=== PATIENT | female | born 1945 | race Caucasian/White ===

== ENCOUNTER 2019-08-28 01:04 | Outpatient (CLI) | payer MEDICARE, OTHER, SELFPAY ==
[2019-08-28 08:38] LABS: Anion Gap 7.9 mmol/L (3-11); BUN 23 mg/dL (7-18); CO2 33.1 mmol/L (21.0-32.0); CREATININE 0.96 mg/dL (0.55-1.02); Calcium 8.6 mg/dL (8.5-10.1); Calculated LDL 145 mg/dL (<100); Chloride 103 mmol/L (98-107); Cholesterol 229 mg/dL (<200); Estimated GFR 57.13 (mL/min/1.73m2); Glucose 100 mg/dL (74-106); HDL Cholesterol 61 mg/dL (40-60); Potassium 3.5 mmol/L (3.5-5.1); Sodium 144 mmol/L (136-145); Triglyceride 117 mg/dL (<150)
[2019-08-28] MEDS: Omnipaque 350 MG/ML 50 ML BTL PO (08:42)
--- NOTE | 2019-08-28 09:57 | DI.CT_ITS ---
EXAM: CT ABDOMEN PELVIS W CLINICAL HISTORY: RLQ pain,R10.31 TECHNIQUE: Post IV and oral contrast. COMPARISON: No exams were available for comparison FINDINGS: There is a small hiatal hernia. Lung bases are clear. The liver, gallbladder, spleen, pancreas and adrenals well as kidneys are unremarkable. The aorta shows calcification and is normal in diameter. The uterus, ovaries and bladder are unremarkable. There is a moderate quantity of stool. There is diverticulosis in the sigmoid but no evidence of diverticulitis. Appendix appears normal. There is no small bowel dilatation or wall thickening. Severe degenerative disc changes are seen from L2-3 t hrough L5-S1. IMPRESSION: No acute abnormality. Small hiatal hernia and sigmoid diverticulosis is present.
[2019-08-28] MEDS: Omnipaque 350 MG/ML 100 ML BTL IJ (10:05)
== END 2019-08-28 01:24 ==
PROVIDERS: PCP Emergency Medicine; Visit Provider Emergency Medicine
DX: R10.31 Right lower quadrant pain (principal); K44.9 Diaphragmatic hernia without obstruction or gangrene; K57.30 Diverticulosis of large intestine without perforation or abscess without bleeding; I10 Essential (primary) hypertension
CPT/HCPCS: 80048; 80061; 74177; 82565; J3490; Q9967

== ENCOUNTER 2019-09-06 00:41 | Outpatient (CLI) | payer MEDICARE, OTHER, SELFPAY ==
--- NOTE | 2019-09-06 10:30 | DI.MAMMO_ITS ---
EXAM: MAMMO SCREENING CLINICAL HISTORY: screening, Z12.39 TECHNIQUE: Mammograms were interpreted according to the usual protocol including computer analysis w [employer] CAD system, tomosynthesis and C-view imaging. COMPARISON: 2009 to 2015 FINDINGS: The breasts are composed of mainly fatty density , Breast Density category A. No suspicious masses or suspicious microcalcifications are seen. There are 2 small stable circumscri bed nodules in the left breast. No skin thickening or abnormal axillary lymph nodes are seen. There has been no significant change from prior exams. IMPRESSION: BI-RADS Category 2 - Negatigve Mammogram with benign findings. Yearly screening mammography is recom mended. Breast density category A.
== END 2019-09-06 01:01 ==
PROVIDERS: PCP Emergency Medicine; Visit Provider Emergency Medicine
DX: Z12.31 Encounter for screening mammogram for malignant neoplasm of breast (principal)
CPT/HCPCS: 77063; 77067

== ENCOUNTER 2019-09-21 00:45 | Outpatient (CLI) | payer MEDICARE, OTHER, SELFPAY | END 2019-09-21 01:05 | PROVIDERS: PCP Emergency Medicine; Visit Provider Dermatology | DX: L40.9 Psoriasis, unspecified (principal) | CPT/HCPCS: 96900 ==

== ENCOUNTER 2019-09-24 02:00 | Outpatient (CLI) | payer MEDICARE, OTHER, SELFPAY | END 2019-09-24 02:20 | PROVIDERS: PCP Emergency Medicine; Visit Provider Dermatology | DX: L40.9 Psoriasis, unspecified (principal) | CPT/HCPCS: 96900 ==

== ENCOUNTER 2019-09-28 01:59 | Outpatient (CLI) | payer MEDICARE, OTHER, SELFPAY | END 2019-09-28 02:19 | PROVIDERS: PCP Emergency Medicine; Visit Provider Dermatology | DX: L40.9 Psoriasis, unspecified (principal) | CPT/HCPCS: 96900 ==

== ENCOUNTER 2019-11-19 03:38 | Outpatient (CLI) | payer MEDICARE, OTHER, SELFPAY | END 2019-11-19 03:58 | PROVIDERS: PCP Emergency Medicine; Visit Provider Dermatology | DX: L40.9 Psoriasis, unspecified (principal) | CPT/HCPCS: 96900 ==

== ENCOUNTER 2019-11-21 02:33 | Outpatient (CLI) | payer MEDICARE, OTHER, SELFPAY | END 2019-11-21 02:53 | PROVIDERS: PCP Emergency Medicine; Visit Provider Dermatology | DX: L40.9 Psoriasis, unspecified (principal) | CPT/HCPCS: 96900 ==

== ENCOUNTER 2019-11-23 01:27 | Outpatient (CLI) | payer MEDICARE, OTHER, SELFPAY | END 2019-11-23 01:47 | PROVIDERS: PCP Emergency Medicine; Visit Provider Dermatology | DX: L40.9 Psoriasis, unspecified (principal) | CPT/HCPCS: 96900 ==

== ENCOUNTER 2019-11-26 02:20 | Outpatient (CLI) | payer MEDICARE, OTHER, SELFPAY | END 2019-11-26 02:40 | PROVIDERS: PCP Emergency Medicine; Visit Provider Dermatology | DX: L40.9 Psoriasis, unspecified (principal) | CPT/HCPCS: 96900 ==

== ENCOUNTER 2019-11-28 03:37 | Outpatient (CLI) | payer MEDICARE, OTHER, SELFPAY | END 2019-11-28 03:57 | PROVIDERS: PCP Emergency Medicine; Visit Provider Dermatology | DX: L40.9 Psoriasis, unspecified (principal) | CPT/HCPCS: 96900 ==

== ENCOUNTER 2019-11-30 01:19 | Outpatient (CLI) | payer MEDICARE, OTHER, SELFPAY | END 2019-11-30 01:39 | PROVIDERS: PCP Emergency Medicine; Visit Provider Dermatology | DX: L40.9 Psoriasis, unspecified (principal) | CPT/HCPCS: 96900 ==

== ENCOUNTER 2019-12-03 02:38 | Outpatient (CLI) | payer MEDICARE, OTHER, SELFPAY | END 2019-12-03 02:58 | PROVIDERS: PCP Emergency Medicine; Visit Provider Dermatology | DX: L40.9 Psoriasis, unspecified (principal) | CPT/HCPCS: 96900 ==

== ENCOUNTER 2019-12-05 01:11 | Outpatient (CLI) | payer MEDICARE, OTHER, SELFPAY | END 2019-12-05 01:31 | PROVIDERS: PCP Emergency Medicine; Visit Provider Dermatology | DX: L40.9 Psoriasis, unspecified (principal) | CPT/HCPCS: 96900 ==

== ENCOUNTER 2019-12-07 01:15 | Outpatient (CLI) | payer MEDICARE, OTHER, SELFPAY | END 2019-12-07 01:35 | PROVIDERS: PCP Emergency Medicine; Visit Provider Dermatology | DX: L40.9 Psoriasis, unspecified (principal) | CPT/HCPCS: 96900 ==

== ENCOUNTER 2019-12-12 03:49 | Outpatient (CLI) | payer MEDICARE, OTHER, SELFPAY | END 2019-12-12 04:09 | PROVIDERS: PCP Emergency Medicine; Visit Provider Dermatology | DX: L40.9 Psoriasis, unspecified (principal) | CPT/HCPCS: 96900 ==

== ENCOUNTER 2019-12-14 00:56 | Outpatient (CLI) | payer MEDICARE, OTHER, SELFPAY | END 2019-12-14 01:16 | PROVIDERS: PCP Emergency Medicine; Visit Provider Dermatology | DX: L40.9 Psoriasis, unspecified (principal) | CPT/HCPCS: 96900 ==

== ENCOUNTER 2019-12-17 03:59 | Outpatient (CLI) | payer MEDICARE, OTHER, SELFPAY | END 2019-12-17 04:19 | PROVIDERS: PCP Emergency Medicine; Visit Provider Dermatology | DX: L40.9 Psoriasis, unspecified (principal) | CPT/HCPCS: 96900 ==

== ENCOUNTER 2019-12-19 03:14 | Outpatient (CLI) | payer MEDICARE, OTHER, SELFPAY | END 2019-12-19 03:34 | PROVIDERS: PCP Emergency Medicine; Visit Provider Dermatology | DX: L40.9 Psoriasis, unspecified (principal) | CPT/HCPCS: 96900 ==

== ENCOUNTER 2019-12-21 01:20 | Outpatient (CLI) | payer MEDICARE, OTHER, SELFPAY | END 2019-12-21 01:40 | PROVIDERS: PCP Emergency Medicine; Visit Provider Dermatology | DX: L40.9 Psoriasis, unspecified (principal) | CPT/HCPCS: 96900 ==

== ENCOUNTER 2019-12-24 04:47 | Outpatient (CLI) | payer MEDICARE, OTHER, SELFPAY | END 2019-12-24 05:07 | PROVIDERS: PCP Emergency Medicine; Visit Provider Dermatology | DX: L40.9 Psoriasis, unspecified (principal) | CPT/HCPCS: 96900 ==

== ENCOUNTER 2019-12-26 01:37 | Outpatient (CLI) | payer MEDICARE, OTHER, SELFPAY | END 2019-12-26 01:57 | PROVIDERS: PCP Emergency Medicine; Visit Provider Dermatology | DX: L40.9 Psoriasis, unspecified (principal) | CPT/HCPCS: 96900 ==

== ENCOUNTER 2019-12-28 01:46 | Outpatient (CLI) | payer MEDICARE, OTHER, SELFPAY | END 2019-12-28 02:06 | PROVIDERS: PCP Emergency Medicine; Visit Provider Dermatology | DX: L40.9 Psoriasis, unspecified (principal) | CPT/HCPCS: 96900 ==

== ENCOUNTER 2019-12-31 02:21 | Outpatient (CLI) | payer MEDICARE, OTHER, SELFPAY | END 2019-12-31 02:41 | PROVIDERS: PCP Emergency Medicine; Visit Provider Dermatology | DX: L40.9 Psoriasis, unspecified (principal) | CPT/HCPCS: 96900 ==

== ENCOUNTER 2020-01-02 04:18 | Outpatient (CLI) | payer MEDICARE, OTHER, SELFPAY | END 2020-01-02 04:38 | PROVIDERS: PCP Emergency Medicine; Visit Provider Dermatology | DX: L40.9 Psoriasis, unspecified (principal) | CPT/HCPCS: 96900 ==

== ENCOUNTER 2020-01-04 03:10 | Outpatient (CLI) | payer MEDICARE, OTHER, SELFPAY | END 2020-01-04 03:30 | PROVIDERS: PCP Emergency Medicine; Visit Provider Dermatology | DX: L40.9 Psoriasis, unspecified (principal) | CPT/HCPCS: 96900 ==

== ENCOUNTER 2020-01-09 02:52 | Outpatient (CLI) | payer MEDICARE, OTHER, SELFPAY | END 2020-01-09 03:12 | PROVIDERS: PCP Emergency Medicine; Visit Provider Dermatology | DX: L40.9 Psoriasis, unspecified (principal) | CPT/HCPCS: 96900 ==

== ENCOUNTER 2020-01-11 02:17 | Outpatient (CLI) | payer MEDICARE, OTHER, SELFPAY | END 2020-01-11 02:37 | PROVIDERS: PCP Emergency Medicine; Visit Provider Dermatology | DX: L40.9 Psoriasis, unspecified (principal) | CPT/HCPCS: 96900 ==

== ENCOUNTER 2020-01-14 03:36 | Outpatient (CLI) | payer MEDICARE, OTHER, SELFPAY | END 2020-01-14 03:56 | PROVIDERS: PCP Emergency Medicine; Visit Provider Dermatology | DX: L40.9 Psoriasis, unspecified (principal) | CPT/HCPCS: 96900 ==

== ENCOUNTER 2020-01-21 02:28 | Outpatient (CLI) | payer MEDICARE, OTHER, SELFPAY | END 2020-01-21 02:48 | PROVIDERS: PCP Emergency Medicine; Visit Provider Dermatology | DX: L40.9 Psoriasis, unspecified (principal) | CPT/HCPCS: 96900 ==

== ENCOUNTER 2020-01-23 03:42 | Outpatient (CLI) | payer MEDICARE, OTHER, SELFPAY | END 2020-01-23 04:02 | PROVIDERS: PCP Emergency Medicine; Visit Provider Dermatology | DX: L40.9 Psoriasis, unspecified (principal) | CPT/HCPCS: 96900 ==

== ENCOUNTER 2020-01-25 01:55 | Outpatient (CLI) | payer MEDICARE, OTHER, SELFPAY | END 2020-01-25 02:15 | PROVIDERS: PCP Emergency Medicine; Visit Provider Dermatology | DX: L40.9 Psoriasis, unspecified (principal) | CPT/HCPCS: 96900 ==

== ENCOUNTER 2020-01-28 01:57 | Outpatient (CLI) | payer MEDICARE, OTHER, SELFPAY | END 2020-01-28 02:17 | PROVIDERS: PCP Emergency Medicine; Visit Provider Dermatology | DX: L40.9 Psoriasis, unspecified (principal) | CPT/HCPCS: 96900 ==

== ENCOUNTER 2020-01-30 01:32 | Outpatient (CLI) | payer MEDICARE, OTHER, SELFPAY | END 2020-01-30 01:52 | PROVIDERS: PCP Emergency Medicine; Visit Provider Dermatology | DX: L40.9 Psoriasis, unspecified (principal) | CPT/HCPCS: 96900 ==

== ENCOUNTER 2020-02-01 02:28 | Outpatient (CLI) | payer MEDICARE, OTHER, SELFPAY | END 2020-02-01 02:48 | PROVIDERS: PCP Emergency Medicine; Visit Provider Dermatology | DX: L40.9 Psoriasis, unspecified (principal) | CPT/HCPCS: 96900 ==

== ENCOUNTER 2020-02-04 02:52 | Outpatient (CLI) | payer MEDICARE, OTHER, SELFPAY | END 2020-02-04 03:12 | PROVIDERS: PCP Emergency Medicine; Visit Provider Dermatology | DX: L40.9 Psoriasis, unspecified (principal) | CPT/HCPCS: 96900 ==

== ENCOUNTER 2020-02-13 03:32 | Outpatient (CLI) | payer MEDICARE, OTHER, SELFPAY | END 2020-02-13 03:52 | PROVIDERS: PCP Emergency Medicine; Visit Provider Dermatology | DX: L40.9 Psoriasis, unspecified (principal) | CPT/HCPCS: 96900 ==

== ENCOUNTER 2020-02-20 04:26 | Outpatient (CLI) | payer MEDICARE, OTHER, SELFPAY | END 2020-02-20 04:46 | PROVIDERS: PCP Emergency Medicine; Visit Provider Dermatology | DX: L40.9 Psoriasis, unspecified (principal) | CPT/HCPCS: 96900 ==

== ENCOUNTER 2020-02-27 03:38 | Outpatient (CLI) | payer MEDICARE, OTHER, SELFPAY | END 2020-02-27 03:58 | PROVIDERS: PCP Emergency Medicine; Visit Provider Dermatology | DX: L40.9 Psoriasis, unspecified (principal) | CPT/HCPCS: 96900 ==

== ENCOUNTER 2020-03-05 03:06 | Outpatient (CLI) | payer MEDICARE, OTHER, SELFPAY | END 2020-03-05 03:26 | PROVIDERS: PCP Emergency Medicine; Visit Provider Dermatology | DX: L40.9 Psoriasis, unspecified (principal) | CPT/HCPCS: 96900 ==

== ENCOUNTER 2020-03-12 03:38 | Outpatient (CLI) | payer MEDICARE, OTHER, SELFPAY | END 2020-03-12 03:58 | PROVIDERS: PCP Emergency Medicine; Visit Provider Dermatology | DX: L40.9 Psoriasis, unspecified (principal) | CPT/HCPCS: 96900 ==

== ENCOUNTER 2020-03-19 05:19 | Outpatient (CLI) | payer MEDICARE, OTHER, SELFPAY | END 2020-03-19 05:39 | PROVIDERS: PCP Emergency Medicine; Visit Provider Dermatology | DX: L40.9 Psoriasis, unspecified (principal) | CPT/HCPCS: 96900 ==

== ENCOUNTER 2020-03-26 02:01 | Outpatient (CLI) | payer MEDICARE, OTHER, SELFPAY | END 2020-03-26 02:21 | PROVIDERS: PCP Emergency Medicine; Visit Provider Dermatology | DX: L40.9 Psoriasis, unspecified (principal) | CPT/HCPCS: 96900 ==

== ENCOUNTER 2020-03-31 01:59 | Outpatient (CLI) | payer MEDICARE, OTHER, SELFPAY | END 2020-03-31 02:19 | PROVIDERS: PCP Emergency Medicine; Visit Provider Dermatology | DX: L40.9 Psoriasis, unspecified (principal) | CPT/HCPCS: 96900 ==

== ENCOUNTER 2020-04-09 03:28 | Outpatient (CLI) | payer MEDICARE, OTHER, SELFPAY | END 2020-04-09 03:48 | PROVIDERS: PCP Emergency Medicine; Visit Provider Dermatology | DX: L40.9 Psoriasis, unspecified (principal) | CPT/HCPCS: 96900 ==

== ENCOUNTER 2020-04-16 03:53 | Outpatient (CLI) | payer MEDICARE, OTHER, SELFPAY | END 2020-04-16 04:13 | PROVIDERS: PCP Emergency Medicine; Visit Provider Dermatology | DX: L40.9 Psoriasis, unspecified (principal) | CPT/HCPCS: 96900 ==

== ENCOUNTER 2020-04-23 01:28 | Outpatient (CLI) | payer MEDICARE, OTHER, SELFPAY | END 2020-04-23 01:48 | PROVIDERS: PCP Emergency Medicine; Visit Provider Dermatology | DX: L40.9 Psoriasis, unspecified (principal) | CPT/HCPCS: 96900 ==

== ENCOUNTER 2020-04-30 02:32 | Outpatient (CLI) | payer MEDICARE, OTHER, SELFPAY | END 2020-04-30 02:52 | PROVIDERS: PCP Emergency Medicine; Visit Provider Dermatology | DX: L40.9 Psoriasis, unspecified (principal) | CPT/HCPCS: 96900 ==

== ENCOUNTER 2020-05-02 01:34 | Outpatient (CLI) | payer MEDICARE, OTHER, SELFPAY | END 2020-05-02 01:54 | PROVIDERS: PCP Emergency Medicine; Visit Provider Dermatology | DX: L40.9 Psoriasis, unspecified (principal) | CPT/HCPCS: 96900 ==

== ENCOUNTER 2020-05-07 01:23 | Outpatient (CLI) | payer MEDICARE, OTHER, SELFPAY | END 2020-05-07 01:43 | PROVIDERS: PCP Emergency Medicine; Visit Provider Dermatology | DX: L40.9 Psoriasis, unspecified (principal) | CPT/HCPCS: 96900 ==

== ENCOUNTER 2020-05-09 07:31 | Outpatient (CLI) | payer MEDICARE, OTHER, SELFPAY | END 2020-05-09 07:51 | PROVIDERS: PCP Emergency Medicine; Visit Provider Dermatology | DX: L40.9 Psoriasis, unspecified (principal) | CPT/HCPCS: 96900 ==

== ENCOUNTER 2020-05-14 03:16 | Outpatient (CLI) | payer MEDICARE, OTHER, SELFPAY | END 2020-05-14 03:36 | PROVIDERS: PCP Emergency Medicine; Visit Provider Dermatology | DX: L40.9 Psoriasis, unspecified (principal) | CPT/HCPCS: 96900 ==

== ENCOUNTER 2020-05-16 01:41 | Outpatient (CLI) | payer MEDICARE, OTHER, SELFPAY | END 2020-05-16 02:01 | PROVIDERS: PCP Emergency Medicine; Visit Provider Dermatology | DX: L40.9 Psoriasis, unspecified (principal) | CPT/HCPCS: 96900 ==

== ENCOUNTER 2020-05-21 02:03 | Outpatient (CLI) | payer MEDICARE, OTHER, SELFPAY | END 2020-05-21 02:23 | PROVIDERS: PCP Emergency Medicine; Visit Provider Dermatology | DX: L40.9 Psoriasis, unspecified (principal) | CPT/HCPCS: 96900 ==

== ENCOUNTER 2020-05-23 01:20 | Outpatient (CLI) | payer MEDICARE, OTHER, SELFPAY | END 2020-05-23 01:40 | PROVIDERS: PCP Emergency Medicine; Visit Provider Dermatology | DX: L40.9 Psoriasis, unspecified (principal) | CPT/HCPCS: 96900 ==

== ENCOUNTER 2020-05-28 02:20 | Outpatient (CLI) | payer MEDICARE, OTHER, SELFPAY | END 2020-05-28 02:40 | PROVIDERS: PCP Emergency Medicine; Visit Provider Dermatology | DX: L40.9 Psoriasis, unspecified (principal) | CPT/HCPCS: 96900 ==

== ENCOUNTER 2020-05-30 00:17 | Outpatient (CLI) | payer MEDICARE, OTHER, SELFPAY | END 2020-05-30 00:37 | PROVIDERS: PCP Emergency Medicine; Visit Provider Dermatology | DX: L40.9 Psoriasis, unspecified (principal) | CPT/HCPCS: 96900 ==

== ENCOUNTER 2020-06-04 00:06 | Outpatient (CLI) | payer MEDICARE, OTHER, SELFPAY | END 2020-06-04 00:26 | PROVIDERS: PCP Emergency Medicine; Visit Provider Dermatology | DX: L40.9 Psoriasis, unspecified (principal) | CPT/HCPCS: 96900 ==

== ENCOUNTER 2020-06-06 00:57 | Outpatient (CLI) | payer MEDICARE, OTHER, SELFPAY | END 2020-06-06 01:17 | PROVIDERS: PCP Emergency Medicine; Visit Provider Dermatology | DX: L40.9 Psoriasis, unspecified (principal) | CPT/HCPCS: 96900 ==

== ENCOUNTER 2020-06-18 12:14 | Outpatient (CLI) | payer MEDICARE, OTHER, SELFPAY | END 2020-06-18 12:34 | PROVIDERS: PCP Emergency Medicine; Visit Provider Dermatology | DX: L40.9 Psoriasis, unspecified (principal) | CPT/HCPCS: 96900 ==

== ENCOUNTER 2020-06-20 00:56 | Outpatient (CLI) | payer MEDICARE, OTHER, SELFPAY | END 2020-06-20 01:16 | PROVIDERS: PCP Emergency Medicine; Visit Provider Dermatology | DX: L40.9 Psoriasis, unspecified (principal) | CPT/HCPCS: 96900 ==

== ENCOUNTER 2020-06-25 07:58 | Outpatient (CLI) | payer MEDICARE, OTHER, SELFPAY | END 2020-06-25 08:18 | PROVIDERS: PCP Emergency Medicine; Visit Provider Dermatology | DX: L40.9 Psoriasis, unspecified (principal) | CPT/HCPCS: 96900 ==

== ENCOUNTER 2020-06-27 07:39 | Outpatient (CLI) | payer MEDICARE, OTHER, SELFPAY | END 2020-06-27 07:59 | PROVIDERS: PCP Emergency Medicine; Visit Provider Dermatology | DX: L40.9 Psoriasis, unspecified (principal) | CPT/HCPCS: 96900 ==

== ENCOUNTER 2020-07-02 02:16 | Outpatient (CLI) | payer MEDICARE, OTHER, SELFPAY | END 2020-07-02 02:36 | PROVIDERS: PCP Emergency Medicine; Visit Provider Dermatology | DX: L40.9 Psoriasis, unspecified (principal) | CPT/HCPCS: 96900 ==

== ENCOUNTER 2020-07-07 03:13 | Outpatient (CLI) | payer MEDICARE, OTHER, SELFPAY | END 2020-07-07 03:33 | PROVIDERS: PCP Emergency Medicine; Visit Provider Dermatology | DX: L40.9 Psoriasis, unspecified (principal) | CPT/HCPCS: 96900 ==

== ENCOUNTER 2020-07-09 03:29 | Outpatient (CLI) | payer MEDICARE, OTHER, SELFPAY | END 2020-07-09 03:49 | PROVIDERS: PCP Emergency Medicine; Visit Provider Dermatology | DX: L40.9 Psoriasis, unspecified (principal) | CPT/HCPCS: 96900 ==

== ENCOUNTER 2020-07-16 09:39 | Outpatient (CLI) | payer MEDICARE, OTHER, SELFPAY | END 2020-07-16 09:59 | PROVIDERS: PCP Emergency Medicine; Visit Provider Dermatology | DX: L40.9 Psoriasis, unspecified (principal) | CPT/HCPCS: 96900 ==

== ENCOUNTER 2020-07-23 05:24 | Outpatient (CLI) | payer MEDICARE, OTHER, SELFPAY | END 2020-07-23 05:44 | PROVIDERS: PCP Emergency Medicine; Visit Provider Dermatology | DX: L40.9 Psoriasis, unspecified (principal) | CPT/HCPCS: 96900 ==

== ENCOUNTER 2020-07-25 00:20 | Outpatient (CLI) | payer MEDICARE, OTHER, SELFPAY | END 2020-07-25 00:40 | PROVIDERS: PCP Emergency Medicine; Visit Provider Dermatology | DX: L40.9 Psoriasis, unspecified (principal) | CPT/HCPCS: 96900 ==

== ENCOUNTER 2020-07-30 08:34 | Outpatient (CLI) | payer MEDICARE, OTHER, SELFPAY | END 2020-07-30 08:54 | PROVIDERS: PCP Emergency Medicine; Visit Provider Dermatology | DX: L40.9 Psoriasis, unspecified (principal) | CPT/HCPCS: 96900 ==

== ENCOUNTER 2020-08-01 08:30 | Outpatient (CLI) | payer MEDICARE, OTHER, SELFPAY | END 2020-08-01 08:50 | PROVIDERS: PCP Emergency Medicine; Visit Provider Dermatology | DX: L40.9 Psoriasis, unspecified (principal) | CPT/HCPCS: 96900 ==

== ENCOUNTER 2020-08-06 10:17 | Outpatient (CLI) | payer MEDICARE, OTHER, SELFPAY | END 2020-08-06 10:37 | PROVIDERS: PCP Emergency Medicine; Visit Provider Dermatology | DX: L40.9 Psoriasis, unspecified (principal) | CPT/HCPCS: 96900 ==

== ENCOUNTER 2020-08-08 08:30 | Outpatient (CLI) | payer MEDICARE, OTHER, SELFPAY | END 2020-08-08 08:50 | PROVIDERS: PCP Emergency Medicine; Visit Provider Dermatology | DX: L40.9 Psoriasis, unspecified (principal) | CPT/HCPCS: 96900 ==

== ENCOUNTER 2020-08-13 09:26 | Outpatient (CLI) | payer MEDICARE, OTHER, SELFPAY | END 2020-08-13 09:46 | PROVIDERS: PCP Emergency Medicine; Visit Provider Dermatology | DX: L40.9 Psoriasis, unspecified (principal) | CPT/HCPCS: 96900 ==

== ENCOUNTER 2020-08-13 18:38 | Outpatient (REF) | payer MEDICARE, OTHER, SELFPAY ==
[2020-08-13 22:10] LABS: Anion Gap 9.2 mmol/L (3-11); BUN 28 mg/dL (7-18); CO2 29.8 mmol/L (21.0-32.0); CREATININE 1.16 mg/dL (0.55-1.02); Calcium 9.2 mg/dL (8.5-10.1); Calculated LDL 148 mg/dL (<100); Chloride 100 mmol/L (98-107); Cholesterol 248 mg/dL (<200); Estimated GFR 45.79 (mL/min/1.73m2); Glucose 89 mg/dL (74-106); HDL Cholesterol 68 mg/dL (40-60); Potassium 3.8 mmol/L (3.5-5.1); Sodium 139 mmol/L (136-145); Triglyceride 161 mg/dL (<150)
== END 2020-08-13 18:58 ==
LOC: LBN 18:38
PROVIDERS: PCP Emergency Medicine; Visit Provider Emergency Medicine
DX: I10 Essential (primary) hypertension (principal)
CPT/HCPCS: 80048; 80061

== ENCOUNTER 2020-08-15 09:36 | Outpatient (CLI) | payer MEDICARE, OTHER, SELFPAY | END 2020-08-15 09:56 | PROVIDERS: PCP Emergency Medicine; Visit Provider Dermatology | DX: L40.9 Psoriasis, unspecified (principal) | CPT/HCPCS: 96900 ==

== ENCOUNTER 2020-08-22 02:38 | Outpatient (CLI) | payer MEDICARE, OTHER, SELFPAY | END 2020-08-22 02:39 | disposition home or self-care (01) | LOC: PUVA 02:39 | PROVIDERS: PCP Emergency Medicine; Visit Provider Dermatology | DX: L40.9 Psoriasis, unspecified (principal) | CPT/HCPCS: 96900 ==

== ENCOUNTER 2020-08-27 03:10 | Outpatient (CLI) | payer MEDICARE, OTHER, SELFPAY | END 2020-08-27 03:11 | disposition home or self-care (01) | LOC: PUVA 03:10 | PROVIDERS: PCP Emergency Medicine; Visit Provider Dermatology | DX: L40.9 Psoriasis, unspecified (principal) | CPT/HCPCS: 96900 ==

== ENCOUNTER 2020-08-28 01:29 | Outpatient (CLI) | payer MEDICARE, OTHER, SELFPAY ==
--- NOTE | 2020-08-28 07:15 | DI.US_ITS ---
APPROVED REPORT EXAM: Comprehensive 2D, Doppler, and color-flow Echocardiogram Patient Location: Out-Patient Tin Flopper: Lelo Johnson RDCS (AE) Indications: Mitral Valve disease, Cardiac murmur Other Information Study Quality: Adequate Conclusion Left Ventricle : The left ventricle is normal size. The left ventricular systolic function is normal. The left ventricular ejection fraction is within the normal range. There is normal left ventricular wall thickness. There is normal LV segmental wall motion. The left ventricular diastolic function is normal. LVEF is 58%. Right Ventricle : The right ventricle is normal size. The right ventricular systolic function is norm al. The RVSP is 20.1mmHg. Atria : The left atrium size is normal. The right atrium size is normal. Aortic Valve : The aortic valve is normal in structure. Mild aortic regurgitation. There is no aortic valvular stenosis. Great Vessels : The aortic root is normal in size. The ascending aorta is normal in size. IVC is norm al in size and collapses >50% with inspiration. Please see remainder of study for further details. Wall motion Left Ventricle The left ventricle is normal size. The left ventricular systolic function is normal. The left ventric ular ejection fraction is within the normal range. There is normal left ventricular wall thickness. T here is normal LV segmental wall motion. The left ventricular diastolic function is normal. There is no ventricular septal defect visualized. LVEF is 58%. Right Ventricle The right ventricle is normal size. The right ventricular systolic function is normal. The RVSP is 20 .1mmHg. Atria The left atrium size is normal. The right atrium size is normal. The interatrial septum is intact wit h no evidence for an atrial septal defect. Aortic Valve The aortic valve is normal in structure. There is no aortic valvular stenosis. Mild aortic regurgitat ion. Mitral Valve Mild mitral annular calcification. No evidence of mitral valve stenosis. Trace mitral regurgitation. Tricuspid Valve The tricuspid valve is normal in structure. There is no tricuspid valve stenosis. Trace tricuspid reg urgitation. Pulmonic Valve The pulmonary valve is normal in structure. There is no pulmonic valvular stenosis. There is no pulmo arely valvular regurgitation. Great Vessels The aortic root is normal in size. The ascending aorta is normal in size. IVC is normal in size and c ollapses >50% with inspiration. Pericardium There is no pericardial effusion. 2D Dimensions IVSD d PLAX 0.81 cm F: 0.6-1.0 LV Vol A2C d MOD 69.9 mL LVPW d PLAX 0.81 cm F: 0.6 - 1.0 LV Vol A4C d MOD 65.9 mL LVID d PLAX 4.06 cm F: 3.8 - 5.2 LA vol/ BSA A2C s A-L 18.5 mL/m2 LVDs 2.95 cm F: 2.2 - 3.5 LA vol/ BSA A4C s A-L 20.3 mL/m2 Ao Root d 2.76 cm F: 2.7 - 3.3 LA Vol/ BSA Biplane s A-L 19.4 mL/m2 RA Area A4C 10.96 cm2 LA Area A4C s MOD 14.78 cm2 RA Vol/ BSA A4C s A-L 13.1 mL/m2 LA Area A2C s MOD 14.10 cm2 Ao Asc Diam d 3.10 cm F: 2.3 - 3.1 LV EF A4C MOD 57.9 % LV EF Teichholz 53.5 % LV EF A2C MOD 56.8 % LVEF (Morales's) 57.33 % F: 54 - 74 LV EF Biplane MOD 57.3 % LV Volume 53.76 mL F: 46 - 106 SV 39.16 mL LV Volume Index 30.89 mL/m2 F: 29 - 61 SV Index 22.48 mL/m2 LV Vol Biplane MOD 68.3 mL FS 27.20 % M-Mode TAPSE 1.49 cm (M/F) >1.7 LV Diastology MV E' medial 0.069 (>0.07 m/s) E/A Ratio 0.7 LV E/e MED 9.00 (<14) MV E Vmax 0.63 (0.4-1.3 m/s) MV E' lateral 0.096 (>0.1 m/s) MV A Vmax 0.85 (0.4-1.3 m/s) LV E/e LAT 6.50 (<14) MV E/A Ratio 0.72 MV E/E' medial 9.02 MV E/E' lateral 6.54 Aortic Valve LVOT Area 3.90 cm2 AoV Area Vmax 2.51 cm2 LVOT Vmax 1.28 m/s AoV Area/ BSA (Vmax) 1.44 cm2/m2 LVOT Mean Jonah. 0.76 m/s MYRANDA Mean Jonah. 2.22 cm2 LVOT Peak Grad 6.6 mmHg MYRANDA Mean Jonah. Index 1.28 cm2/m2 LVOT Mean Grad 2.8 mmHg AR DT 2032 msec LVOT VTI 0.260 m AR PHT 589 msec LVOT Diam s 2.20 cm AoV Vmax 1.99 m/s Velocity Ratio 0.64 AoV Mean Jonah. 1.33 m/s AoV Peak Grad 15.8 mmHg LVOT SV 101.32 mL AoV Mean Grad 8.2 mmHg AoV VTI 0.363 m AoV Area VTI 2.79 cm2 AoV Area/ BSA (VTI) 1.60 cm/m2 Mitral Valve MV DT 268 (160-240 msec) MV PHT 78 msec MV Area PHT 2.83 cm2 MV VTI 0.280 m MV VTI Annulus 0.280 m Pulmonary Valve PV Vmax 1.09 (0.5-1.5 m/s) RVOT Peak Gr. 3.00 mmHg PV Peak Grad 4.7 mmHg RVOT Mean Gr. 1.45 mmHg PV Mean Grad 2.6 mmHg RVOT VTI 0.184 m PV VTI 0.216 m RVOT Vmax 0.87 m/s Tricuspid Valve TR Peak Grad 17.0 mmHg TR Vmax 2.07 m/s RA Pressure 3.00 mmHg RVSP (TR) 20.1 mmHg
== END 2020-08-28 01:30 ==
PROVIDERS: PCP Emergency Medicine; Visit Provider Emergency Medicine
DX: R01.1 Cardiac murmur, unspecified (principal); I35.1 Nonrheumatic aortic (valve) insufficiency
CPT/HCPCS: 93306

== ENCOUNTER 2020-08-29 00:34 | Outpatient (CLI) | payer MEDICARE, OTHER, SELFPAY | END 2020-08-29 00:35 | disposition home or self-care (01) | LOC: PUVA 00:34 | PROVIDERS: PCP Emergency Medicine; Visit Provider Dermatology | DX: L40.9 Psoriasis, unspecified (principal) | CPT/HCPCS: 96900 ==

== ENCOUNTER 2020-09-03 03:23 | Outpatient (CLI) | payer MEDICARE, OTHER, SELFPAY | END 2020-09-03 03:24 | disposition home or self-care (01) | PROVIDERS: PCP Emergency Medicine; Visit Provider Dermatology | DX: L40.9 Psoriasis, unspecified (principal) | CPT/HCPCS: 96900 ==

== ENCOUNTER 2020-09-05 03:04 | Outpatient (CLI) | payer MEDICARE, OTHER, SELFPAY | END 2020-09-05 03:05 | disposition home or self-care (01) | PROVIDERS: PCP Emergency Medicine; Visit Provider Dermatology | DX: L40.9 Psoriasis, unspecified (principal) | CPT/HCPCS: 96900 ==

== ENCOUNTER 2020-09-10 03:08 | Outpatient (CLI) | payer MEDICARE, OTHER, SELFPAY | END 2020-09-10 03:09 | disposition home or self-care (01) | LOC: PUVA 03:08 | PROVIDERS: PCP Emergency Medicine; Visit Provider Dermatology | DX: L40.9 Psoriasis, unspecified (principal) | CPT/HCPCS: 96900 ==

== ENCOUNTER 2020-09-12 00:23 | Outpatient (CLI) | payer MEDICARE, OTHER, SELFPAY | END 2020-09-12 00:24 | disposition home or self-care (01) | PROVIDERS: PCP Emergency Medicine; Visit Provider Dermatology | DX: L40.9 Psoriasis, unspecified (principal) | CPT/HCPCS: 96900 ==

== ENCOUNTER 2020-09-19 01:51 | Outpatient (CLI) | payer MEDICARE, OTHER, SELFPAY | END 2020-09-19 01:52 | disposition home or self-care (01) | LOC: PUVA 01:51 | PROVIDERS: PCP Emergency Medicine; Visit Provider Dermatology | DX: L40.9 Psoriasis, unspecified (principal) | CPT/HCPCS: 96900 ==

== ENCOUNTER 2020-09-24 09:07 | Outpatient (CLI) | payer MEDICARE, OTHER, SELFPAY | END 2020-09-24 09:08 | disposition home or self-care (01) | LOC: PUVA 09:08 | PROVIDERS: PCP Emergency Medicine; Visit Provider Dermatology | DX: L40.9 Psoriasis, unspecified (principal) | CPT/HCPCS: 96900 ==

== ENCOUNTER 2020-10-01 08:39 | Outpatient (CLI) | payer MEDICARE, OTHER, SELFPAY | END 2020-10-01 08:40 | disposition home or self-care (01) | LOC: PUVA 08:39 | PROVIDERS: PCP Emergency Medicine; Visit Provider Dermatology | DX: L40.9 Psoriasis, unspecified (principal) | CPT/HCPCS: 96900 ==

== ENCOUNTER 2020-10-08 08:41 | Outpatient (CLI) | payer MEDICARE, OTHER, SELFPAY | END 2020-10-08 08:42 | disposition home or self-care (01) | LOC: PUVA 08:41 | PROVIDERS: PCP Emergency Medicine; Visit Provider Dermatology | DX: L40.9 Psoriasis, unspecified (principal) | CPT/HCPCS: 96900 ==

== ENCOUNTER 2020-10-15 08:26 | Outpatient (CLI) | payer MEDICARE, OTHER, SELFPAY | END 2020-10-15 08:27 | disposition home or self-care (01) | LOC: PUVA 08:26 | PROVIDERS: PCP Emergency Medicine; Visit Provider Dermatology | DX: L40.9 Psoriasis, unspecified (principal) | CPT/HCPCS: 96900 ==

== ENCOUNTER 2020-10-22 08:12 | Outpatient (CLI) | payer MEDICARE, OTHER, SELFPAY | END 2020-10-22 08:13 | disposition home or self-care (01) | LOC: PUVA 08:12 | PROVIDERS: PCP Emergency Medicine; Visit Provider Dermatology | DX: L40.9 Psoriasis, unspecified (principal) | CPT/HCPCS: 96900 ==

== ENCOUNTER 2020-10-29 07:40 | Outpatient (CLI) | payer MEDICARE, OTHER, SELFPAY | END 2020-10-29 07:41 | disposition home or self-care (01) | LOC: PUVA 07:40 | PROVIDERS: PCP Emergency Medicine; Visit Provider Dermatology | DX: L40.9 Psoriasis, unspecified (principal) | CPT/HCPCS: 96900 ==

== ENCOUNTER 2020-11-07 01:03 | Outpatient (CLI) | payer MEDICARE, OTHER, SELFPAY | END 2020-11-07 01:04 | disposition home or self-care (01) | LOC: PUVA 01:03 | PROVIDERS: PCP Emergency Medicine; Visit Provider Dermatology | DX: L40.9 Psoriasis, unspecified (principal) | CPT/HCPCS: 96900 ==

== ENCOUNTER 2020-11-12 08:35 | Outpatient (CLI) | payer MEDICARE, OTHER, SELFPAY | END 2020-11-12 08:36 | disposition home or self-care (01) | LOC: PUVA 08:35 | PROVIDERS: PCP Emergency Medicine; Visit Provider Dermatology | DX: L40.9 Psoriasis, unspecified (principal) | CPT/HCPCS: 96900 ==

== ENCOUNTER 2020-11-19 07:27 | Outpatient (CLI) | payer MEDICARE, OTHER, SELFPAY | END 2020-11-19 07:28 | disposition home or self-care (01) | LOC: PUVA 07:27 | PROVIDERS: PCP Emergency Medicine; Visit Provider Dermatology | DX: L40.9 Psoriasis, unspecified (principal) | CPT/HCPCS: 96900 ==

== ENCOUNTER 2020-11-26 08:28 | Outpatient (CLI) | payer MEDICARE, OTHER, SELFPAY | END 2020-11-26 08:29 | disposition home or self-care (01) | LOC: PUVA 08:29 | PROVIDERS: PCP Emergency Medicine; Visit Provider Dermatology | DX: L40.9 Psoriasis, unspecified (principal) | CPT/HCPCS: 96900 ==

== ENCOUNTER 2020-12-03 07:47 | Outpatient (CLI) | payer MEDICARE, OTHER, SELFPAY | END 2020-12-03 07:48 | disposition home or self-care (01) | LOC: PUVA 07:47 | PROVIDERS: PCP Emergency Medicine; Visit Provider Dermatology | DX: L40.9 Psoriasis, unspecified (principal) | CPT/HCPCS: 96900 ==

== ENCOUNTER 2020-12-10 10:09 | Outpatient (CLI) | payer MEDICARE, OTHER, SELFPAY | END 2020-12-10 10:10 | disposition home or self-care (01) | LOC: PUVA 10:09 | PROVIDERS: PCP Emergency Medicine; Visit Provider Dermatology | DX: L40.9 Psoriasis, unspecified (principal) | CPT/HCPCS: 96900 ==

== ENCOUNTER 2020-12-17 07:38 | Outpatient (CLI) | payer MEDICARE, OTHER, SELFPAY | END 2020-12-17 07:39 | disposition home or self-care (01) | LOC: PUVA 07:39 | PROVIDERS: PCP Emergency Medicine; Visit Provider Dermatology | DX: L40.9 Psoriasis, unspecified (principal) | CPT/HCPCS: 96900 ==

== ENCOUNTER 2020-12-24 07:41 | Outpatient (CLI) | payer MEDICARE, OTHER, SELFPAY | END 2020-12-24 07:42 | disposition home or self-care (01) | LOC: PUVA 07:42 | PROVIDERS: PCP Emergency Medicine; Visit Provider Dermatology | DX: L40.9 Psoriasis, unspecified (principal) | CPT/HCPCS: 96900 ==

== ENCOUNTER 2020-12-31 08:22 | Outpatient (CLI) | payer MEDICARE, OTHER, SELFPAY | END 2020-12-31 08:23 | disposition home or self-care (01) | LOC: PUVA 08:23 | PROVIDERS: PCP Emergency Medicine; Visit Provider Dermatology | DX: L40.9 Psoriasis, unspecified (principal) | CPT/HCPCS: 96900 ==

== ENCOUNTER 2021-01-07 08:17 | Outpatient (CLI) | payer MEDICARE, OTHER, SELFPAY | END 2021-01-07 08:18 | disposition home or self-care (01) | LOC: PUVA 08:18 | PROVIDERS: PCP Emergency Medicine; Visit Provider Dermatology | DX: L40.9 Psoriasis, unspecified (principal) | CPT/HCPCS: 96900 ==

== ENCOUNTER 2021-01-14 08:28 | Outpatient (CLI) | payer MEDICARE, OTHER, SELFPAY | END 2021-01-14 08:29 | disposition home or self-care (01) | LOC: PUVA 08:28 | PROVIDERS: PCP Emergency Medicine; Visit Provider Dermatology | DX: L40.9 Psoriasis, unspecified (principal) | CPT/HCPCS: 96900 ==

== ENCOUNTER 2021-01-21 08:08 | Outpatient (CLI) | payer MEDICARE, OTHER, SELFPAY | END 2021-01-21 08:09 | disposition home or self-care (01) | LOC: PUVA 08:31 | PROVIDERS: PCP Emergency Medicine; Visit Provider Dermatology | DX: L40.9 Psoriasis, unspecified (principal) | CPT/HCPCS: 96900 ==

== ENCOUNTER 2021-01-28 08:29 | Outpatient (CLI) | payer MEDICARE, OTHER, SELFPAY | END 2021-01-28 08:30 | disposition home or self-care (01) | LOC: PUVA 08:33 | PROVIDERS: PCP Emergency Medicine; Visit Provider Dermatology | DX: L40.9 Psoriasis, unspecified (principal) | CPT/HCPCS: 96900 ==

== ENCOUNTER 2021-02-04 08:25 | Outpatient (CLI) | payer MEDICARE, OTHER, SELFPAY | END 2021-02-04 08:26 | disposition home or self-care (01) | LOC: PUVA 08:25 | PROVIDERS: PCP Emergency Medicine; Visit Provider Dermatology | DX: L40.9 Psoriasis, unspecified (principal) | CPT/HCPCS: 96900 ==

== ENCOUNTER 2021-02-11 08:27 | Outpatient (CLI) | payer MEDICARE, OTHER, SELFPAY | END 2021-02-11 08:28 | disposition home or self-care (01) | LOC: PUVA 08:28 | PROVIDERS: PCP Emergency Medicine; Visit Provider Dermatology | DX: L40.9 Psoriasis, unspecified (principal) | CPT/HCPCS: 96900 ==

== ENCOUNTER 2021-02-18 08:27 | Outpatient (CLI) | payer MEDICARE, OTHER, SELFPAY | END 2021-02-18 08:28 | disposition home or self-care (01) | LOC: PUVA 08:28 | PROVIDERS: PCP Emergency Medicine; Visit Provider Dermatology | DX: L40.9 Psoriasis, unspecified (principal) | CPT/HCPCS: 96900 ==

== ENCOUNTER 2021-02-25 08:24 | Outpatient (CLI) | payer MEDICARE, OTHER, SELFPAY | END 2021-02-25 08:25 | disposition home or self-care (01) | LOC: PUVA 08:24 | PROVIDERS: PCP Emergency Medicine; Visit Provider Dermatology | DX: L40.9 Psoriasis, unspecified (principal) | CPT/HCPCS: 96900 ==

== ENCOUNTER 2021-03-04 08:18 | Outpatient (CLI) | payer MEDICARE, OTHER, SELFPAY | END 2021-03-04 08:19 | disposition home or self-care (01) | LOC: PUVA 08:18 | PROVIDERS: PCP Emergency Medicine; Visit Provider Dermatology | DX: L40.9 Psoriasis, unspecified (principal) | CPT/HCPCS: 96900 ==

== ENCOUNTER 2021-03-11 08:17 | Outpatient (CLI) | payer MEDICARE, OTHER, SELFPAY | END 2021-03-11 08:18 | disposition home or self-care (01) | LOC: PUVA 08:18 | PROVIDERS: PCP Emergency Medicine; Visit Provider Dermatology | DX: L40.9 Psoriasis, unspecified (principal) | CPT/HCPCS: 96900 ==

== ENCOUNTER 2021-03-18 08:14 | Outpatient (CLI) | payer MEDICARE, OTHER, SELFPAY | END 2021-03-18 08:15 | disposition home or self-care (01) | LOC: PUVA 08:14 | PROVIDERS: PCP Emergency Medicine; Visit Provider Dermatology | DX: L40.9 Psoriasis, unspecified (principal) | CPT/HCPCS: 96900 ==

== ENCOUNTER 2021-03-25 08:32 | Outpatient (CLI) | payer MEDICARE, OTHER, SELFPAY | END 2021-03-25 08:33 | disposition home or self-care (01) | LOC: PUVA 08:32 | PROVIDERS: PCP Emergency Medicine; Visit Provider Dermatology | DX: L40.9 Psoriasis, unspecified (principal) | CPT/HCPCS: 96900 ==

== ENCOUNTER 2021-04-06 03:43 | Outpatient (CLI) | payer MEDICARE, OTHER, SELFPAY | END 2021-04-06 03:44 | disposition home or self-care (01) | LOC: PUVA 03:43 | PROVIDERS: PCP Emergency Medicine; Visit Provider Dermatology | DX: L40.9 Psoriasis, unspecified (principal) | CPT/HCPCS: 96900 ==

== ENCOUNTER 2021-04-13 08:22 | Outpatient (CLI) | payer MEDICARE, OTHER, SELFPAY | END 2021-04-13 08:23 | disposition home or self-care (01) | LOC: PUVA 08:22 | PROVIDERS: PCP Emergency Medicine; Visit Provider Dermatology | DX: L40.9 Psoriasis, unspecified (principal) | CPT/HCPCS: 96900 ==

== ENCOUNTER 2021-04-22 07:32 | Outpatient (CLI) | payer MEDICARE, OTHER, SELFPAY | END 2021-04-22 07:33 | disposition home or self-care (01) | LOC: PUVA 07:32 | PROVIDERS: PCP Emergency Medicine; Visit Provider Dermatology | DX: L40.9 Psoriasis, unspecified (principal) | CPT/HCPCS: 96900 ==

== ENCOUNTER 2021-04-29 08:06 | Outpatient (CLI) | payer MEDICARE, OTHER, SELFPAY | END 2021-04-29 08:07 | disposition home or self-care (01) | LOC: PUVA 08:06 | PROVIDERS: PCP Emergency Medicine; Visit Provider Dermatology | DX: L40.9 Psoriasis, unspecified (principal) | CPT/HCPCS: 96900 ==

== ENCOUNTER 2021-05-14 08:23 | Outpatient (CLI) | payer MEDICARE, OTHER, SELFPAY | END 2021-05-14 08:24 | disposition home or self-care (01) | LOC: PUVA 08:23 | PROVIDERS: PCP Emergency Medicine; Visit Provider Dermatology | DX: L40.9 Psoriasis, unspecified (principal) | CPT/HCPCS: 96900 ==

== ENCOUNTER 2021-05-20 01:31 | Outpatient (CLI) | payer MEDICARE, OTHER, SELFPAY | END 2021-05-20 01:32 | disposition home or self-care (01) | LOC: PUVA 01:32 | PROVIDERS: PCP Emergency Medicine; Visit Provider Dermatology | DX: L40.9 Psoriasis, unspecified (principal) | CPT/HCPCS: 96900 ==

== ENCOUNTER 2021-05-27 07:34 | Outpatient (CLI) | payer MEDICARE, OTHER, SELFPAY | END 2021-05-27 07:35 | disposition home or self-care (01) | LOC: PUVA 07:34 | PROVIDERS: PCP Emergency Medicine; Visit Provider Dermatology | DX: L40.9 Psoriasis, unspecified (principal) | CPT/HCPCS: 96900 ==

== ENCOUNTER 2021-06-03 04:07 | Outpatient (CLI) | payer MEDICARE, OTHER, SELFPAY | END 2021-06-03 04:08 | disposition home or self-care (01) | LOC: PUVA 04:09 | PROVIDERS: PCP Emergency Medicine; Visit Provider Dermatology | DX: L40.9 Psoriasis, unspecified (principal) | CPT/HCPCS: 96900 ==

== ENCOUNTER 2021-06-10 07:02 | Outpatient (CLI) | payer MEDICARE, OTHER, SELFPAY | END 2021-06-10 07:03 | disposition home or self-care (01) | LOC: PUVA 07:02 | PROVIDERS: PCP Emergency Medicine; Visit Provider Dermatology | DX: L40.9 Psoriasis, unspecified (principal) | CPT/HCPCS: 96900 ==

== ENCOUNTER 2021-06-24 07:11 | Outpatient (CLI) | payer MEDICARE, OTHER, SELFPAY | END 2021-06-24 07:12 | disposition home or self-care (01) | LOC: PUVA 07:11 | PROVIDERS: PCP Emergency Medicine; Visit Provider Dermatology | DX: L40.9 Psoriasis, unspecified (principal) | CPT/HCPCS: 96900 ==

== ENCOUNTER 2021-07-07 08:39 | Outpatient (CLI) | payer MEDICARE, OTHER, SELFPAY | END 2021-07-07 08:40 | disposition home or self-care (01) | LOC: PUVA 08:39 | PROVIDERS: PCP Emergency Medicine; Visit Provider Dermatology | DX: L40.9 Psoriasis, unspecified (principal) | CPT/HCPCS: 96900 ==

== ENCOUNTER 2021-07-14 07:49 | Outpatient (CLI) | payer MEDICARE, OTHER, SELFPAY | END 2021-07-14 07:50 | disposition home or self-care (01) | LOC: PUVA 07:49 | PROVIDERS: PCP Emergency Medicine; Visit Provider Dermatology | DX: L40.9 Psoriasis, unspecified (principal) | CPT/HCPCS: 96900 ==

== ENCOUNTER 2021-07-21 07:21 | Outpatient (CLI) | payer MEDICARE, OTHER, SELFPAY | END 2021-07-21 07:22 | disposition home or self-care (01) | LOC: PUVA 07:21 | PROVIDERS: PCP Emergency Medicine; Visit Provider Dermatology | DX: L40.9 Psoriasis, unspecified (principal) | CPT/HCPCS: 96900 ==

== ENCOUNTER 2021-08-04 11:27 | Outpatient (CLI) | payer MEDICARE, OTHER, SELFPAY | END 2021-08-04 11:28 | disposition home or self-care (01) | LOC: PUVA 11:28 | PROVIDERS: PCP Emergency Medicine; Visit Provider Dermatology | DX: L40.9 Psoriasis, unspecified (principal) | CPT/HCPCS: 96900 ==

== ENCOUNTER 2021-08-11 08:40 | Outpatient (CLI) | payer MEDICARE, OTHER, SELFPAY | END 2021-08-11 08:41 | disposition home or self-care (01) | LOC: PUVA 08:41 | PROVIDERS: PCP Emergency Medicine; Visit Provider Dermatology | DX: L40.9 Psoriasis, unspecified (principal) | CPT/HCPCS: 96900 ==

== ENCOUNTER 2021-08-25 08:06 | Outpatient (CLI) | payer MEDICARE, OTHER, SELFPAY | END 2021-08-25 08:07 | disposition home or self-care (01) | LOC: PUVA 08:06 | PROVIDERS: PCP Nurse Practitioner Family; Visit Provider Dermatology | DX: L40.9 Psoriasis, unspecified (principal) | CPT/HCPCS: 96900 ==

== ENCOUNTER 2021-09-01 07:12 | Outpatient (CLI) | payer MEDICARE, OTHER, SELFPAY | END 2021-09-01 07:13 | disposition home or self-care (01) | LOC: PUVA 07:13 | PROVIDERS: PCP Nurse Practitioner Family; Visit Provider Dermatology | DX: L40.9 Psoriasis, unspecified (principal) | CPT/HCPCS: 96900 ==

== ENCOUNTER 2021-09-08 08:33 | Outpatient (CLI) | payer MEDICARE, OTHER, SELFPAY | END 2021-09-08 08:34 | disposition home or self-care (01) | LOC: PUVA 08:33 | PROVIDERS: PCP Nurse Practitioner Family; Visit Provider Dermatology | DX: L40.9 Psoriasis, unspecified (principal) | CPT/HCPCS: 96900 ==

== ENCOUNTER 2021-09-15 07:52 | Outpatient (CLI) | payer MEDICARE, OTHER, SELFPAY | END 2021-09-15 07:53 | disposition home or self-care (01) | LOC: PUVA 07:52 | PROVIDERS: PCP Nurse Practitioner Family; Visit Provider Dermatology | DX: L40.9 Psoriasis, unspecified (principal) | CPT/HCPCS: 96900 ==

== ENCOUNTER 2021-09-25 09:32 | Outpatient (CLI) | payer MEDICARE, OTHER, SELFPAY | END 2021-09-25 09:33 | disposition home or self-care (01) | LOC: PUVA 09:33 | PROVIDERS: PCP Nurse Practitioner Family; Visit Provider Dermatology | DX: L40.9 Psoriasis, unspecified (principal) | CPT/HCPCS: 96900 ==

== ENCOUNTER 2021-09-29 08:04 | Outpatient (CLI) | payer MEDICARE, OTHER, SELFPAY | END 2021-09-29 08:05 | disposition home or self-care (01) | LOC: PUVA 08:32 | PROVIDERS: PCP Nurse Practitioner Family; Visit Provider Dermatology | DX: L40.9 Psoriasis, unspecified (principal) | CPT/HCPCS: 96900 ==

== ENCOUNTER 2021-10-06 08:28 | Outpatient (CLI) | payer MEDICARE, OTHER, SELFPAY | END 2021-10-06 08:29 | disposition home or self-care (01) | LOC: PUVA 08:35 | PROVIDERS: PCP Nurse Practitioner Family; Visit Provider Dermatology | DX: L40.9 Psoriasis, unspecified (principal) | CPT/HCPCS: 96900 ==

== ENCOUNTER 2021-10-12 01:11 | Outpatient (CLI) | payer MEDICARE, OTHER, SELFPAY ==
--- NOTE | 2021-10-12 12:30 | DI.MAMMO_ITS ---
Exam(s) MAMMO SCREENING EXAM: MAMMO SCREENING CLINICAL HISTORY: screening,Z12.39 TECHNIQUE: Mammograms were interpreted according to the usual protocol including computer analysis w [employer] CAD system, tomosynthesis and C-view imaging. COMPARISON: 2011 through 2019 FINDINGS: The breasts are composed of scattered fibroglandular densities, Breast Density category B. No suspicious masses or suspicious microcalcifications are seen. Stable prescribed nodules left mattie st. No skin thickening or abnormal axillary lymph nodes are seen. There has been no significant change from prior exams. IMPRESSION: BI-RADS Cat 2 - Benign Findings Yearly screening mammography is recommended. Breast Density - Category B, scattered fibroglandular densities. A negative radiographic report should not delay biopsy if a dominant or clinically suspicious mass is present. Up to ten percent of cancers are not identified on mammography. A negative report may reinforce clinical impression. Adenosis and dense breasts may obscure an underlying neoplasm. False positive reports average 6 to 10%. Patient will receive a letter notifying them of these results.
== END 2021-10-12 01:31 ==
PROVIDERS: PCP Nurse Practitioner Family; Visit Provider Nurse Practitioner Family
DX: Z12.31 Encounter for screening mammogram for malignant neoplasm of breast (principal)
CPT/HCPCS: 77063; 77067

== ENCOUNTER 2021-10-13 07:44 | Outpatient (CLI) | payer MEDICARE, OTHER, SELFPAY | END 2021-10-13 07:45 | disposition home or self-care (01) | LOC: PUVA 07:44 | PROVIDERS: PCP Nurse Practitioner Family; Visit Provider Dermatology | DX: L40.9 Psoriasis, unspecified (principal) | CPT/HCPCS: 96900 ==

== ENCOUNTER 2021-10-20 08:38 | Outpatient (CLI) | payer MEDICARE, OTHER, SELFPAY | END 2021-10-20 08:39 | disposition home or self-care (01) | LOC: PUVA 08:38 | PROVIDERS: PCP Nurse Practitioner Family; Visit Provider Dermatology | DX: L40.9 Psoriasis, unspecified (principal) | CPT/HCPCS: 96900 ==

== ENCOUNTER 2021-10-26 08:05 | Outpatient (CLI) | payer MEDICARE, OTHER, SELFPAY | END 2021-10-26 08:06 | disposition home or self-care (01) | LOC: PUVA 08:30 | PROVIDERS: PCP Nurse Practitioner Family; Visit Provider Dermatology | DX: L40.9 Psoriasis, unspecified (principal) | CPT/HCPCS: 96900 ==

== ENCOUNTER 2021-11-02 08:08 | Outpatient (CLI) | payer MEDICARE, OTHER, SELFPAY | END 2021-11-02 08:09 | disposition home or self-care (01) | LOC: PUVA 08:08 | PROVIDERS: PCP Nurse Practitioner Family; Visit Provider Dermatology | DX: L40.9 Psoriasis, unspecified (principal) | CPT/HCPCS: 96900 ==

== ENCOUNTER 2021-11-09 08:14 | Outpatient (CLI) | payer MEDICARE, OTHER, SELFPAY | END 2021-11-09 08:15 | disposition home or self-care (01) | LOC: PUVA 08:14 | PROVIDERS: PCP Nurse Practitioner Family; Visit Provider Dermatology | DX: L40.9 Psoriasis, unspecified (principal) | CPT/HCPCS: 96900 ==

== ENCOUNTER 2021-11-16 07:37 | Outpatient (CLI) | payer MEDICARE, OTHER, SELFPAY | END 2021-11-16 07:38 | disposition home or self-care (01) | LOC: PUVA 07:37 | PROVIDERS: PCP Nurse Practitioner Family; Visit Provider Dermatology | DX: L40.9 Psoriasis, unspecified (principal) | CPT/HCPCS: 96900 ==

== ENCOUNTER 2021-11-23 07:18 | Outpatient (CLI) | payer MEDICARE, OTHER, SELFPAY | END 2021-11-23 07:19 | disposition home or self-care (01) | LOC: PUVA 07:18 | PROVIDERS: PCP Nurse Practitioner Family; Visit Provider Dermatology | DX: L40.9 Psoriasis, unspecified (principal) | CPT/HCPCS: 96900 ==

== ENCOUNTER 2021-12-11 07:43 | Outpatient (CLI) | payer MEDICARE, OTHER, SELFPAY | END 2021-12-11 07:44 | disposition home or self-care (01) | LOC: PUVA 07:43 | PROVIDERS: PCP Nurse Practitioner Family; Visit Provider Dermatology | DX: L40.9 Psoriasis, unspecified (principal) | CPT/HCPCS: 96900 ==

== ENCOUNTER 2021-12-21 13:59 | Outpatient (CLI) | payer MEDICARE, OTHER, SELFPAY | END 2021-12-21 14:00 | disposition home or self-care (01) | LOC: PUVA 12-22 14:01 | PROVIDERS: PCP Nurse Practitioner Family; Visit Provider Dermatology | DX: L40.9 Psoriasis, unspecified (principal) | CPT/HCPCS: 96900 ==

== ENCOUNTER 2021-12-28 07:29 | Outpatient (CLI) | payer MEDICARE, OTHER, SELFPAY | END 2021-12-28 07:30 | disposition home or self-care (01) | LOC: PUVA 07:29 | PROVIDERS: PCP Nurse Practitioner Family; Visit Provider Dermatology | DX: L40.9 Psoriasis, unspecified (principal) | CPT/HCPCS: 96900 ==

== ENCOUNTER 2022-01-04 07:53 | Outpatient (CLI) | payer MEDICARE, OTHER, SELFPAY | END 2022-01-04 07:54 | disposition home or self-care (01) | LOC: PUVA 07:53 | PROVIDERS: PCP Nurse Practitioner Family; Visit Provider Dermatology | DX: L40.9 Psoriasis, unspecified (principal) | CPT/HCPCS: 96900 ==

== ENCOUNTER 2022-01-11 07:49 | Outpatient (CLI) | payer MEDICARE, OTHER, SELFPAY | END 2022-01-11 07:50 | disposition home or self-care (01) | LOC: PUVA 07:50 | PROVIDERS: PCP Nurse Practitioner Family; Visit Provider Dermatology | DX: L40.9 Psoriasis, unspecified (principal) | CPT/HCPCS: 96900 ==

== ENCOUNTER 2022-01-19 07:14 | Outpatient (CLI) | payer MEDICARE, OTHER, SELFPAY | END 2022-01-19 07:15 | disposition home or self-care (01) | PROVIDERS: PCP Nurse Practitioner Family; Visit Provider Dermatology ==

== ENCOUNTER 2022-01-25 08:04 | Outpatient (CLI) | payer MEDICARE, OTHER, SELFPAY | END 2022-01-25 08:05 | disposition home or self-care (01) | LOC: PUVA 08:05 | PROVIDERS: PCP Nurse Practitioner Family; Visit Provider Dermatology | DX: L40.9 Psoriasis, unspecified (principal) | CPT/HCPCS: 96900 ==

== ENCOUNTER 2022-02-01 07:19 | Outpatient (CLI) | payer MEDICARE, OTHER, SELFPAY | END 2022-02-01 07:20 | disposition home or self-care (01) | PROVIDERS: PCP Nurse Practitioner Family; Visit Provider Dermatology ==

== ENCOUNTER 2022-02-08 07:43 | Outpatient (CLI) | payer MEDICARE, OTHER, SELFPAY | END 2022-02-08 07:44 | LOC: PUVA 02-15 07:43 | PROVIDERS: PCP Nurse Practitioner Family; Visit Provider Dermatology | DX: L40.9 Psoriasis, unspecified (principal) | CPT/HCPCS: 96900 ==

== ENCOUNTER 2022-02-15 07:53 | Outpatient (CLI) | payer MEDICARE, OTHER, SELFPAY | END 2022-02-15 07:54 | disposition home or self-care (01) | LOC: PUVA 07:53 | PROVIDERS: PCP Nurse Practitioner Family; Visit Provider Dermatology | DX: L40.9 Psoriasis, unspecified (principal) | CPT/HCPCS: 96900 ==

== ENCOUNTER 2022-02-23 07:21 | Outpatient (CLI) | payer MEDICARE, OTHER, SELFPAY | END 2022-02-23 07:22 | disposition home or self-care (01) | LOC: PUVA 07:22 | PROVIDERS: PCP Nurse Practitioner Family; Visit Provider Dermatology | DX: L40.9 Psoriasis, unspecified (principal) | CPT/HCPCS: 96900 ==

== ENCOUNTER 2022-03-04 12:04 | Outpatient (CLI) | payer MEDICARE, OTHER, SELFPAY | END 2022-03-04 12:05 | disposition home or self-care (01) | LOC: PUVA 12:04 | PROVIDERS: PCP Nurse Practitioner Family; Visit Provider Dermatology | DX: L40.9 Psoriasis, unspecified (principal) | CPT/HCPCS: 96900 ==

== ENCOUNTER 2022-03-09 08:25 | Outpatient (CLI) | payer MEDICARE, OTHER, SELFPAY | END 2022-03-09 08:26 | disposition home or self-care (01) | LOC: PUVA 08:25 | PROVIDERS: PCP Nurse Practitioner Family; Visit Provider Dermatology | DX: L40.9 Psoriasis, unspecified (principal) | CPT/HCPCS: 96900 ==

== ENCOUNTER 2022-03-16 08:03 | Outpatient (CLI) | payer MEDICARE, OTHER, SELFPAY | END 2022-03-16 08:04 | disposition home or self-care (01) | LOC: PUVA 08:03 | PROVIDERS: PCP Nurse Practitioner Family; Visit Provider Dermatology | DX: L40.9 Psoriasis, unspecified (principal) | CPT/HCPCS: 96900 ==

== ENCOUNTER 2022-03-23 08:36 | Outpatient (CLI) | payer MEDICARE, OTHER, SELFPAY | END 2022-03-23 08:37 | disposition home or self-care (01) | LOC: PUVA 08:36 | PROVIDERS: PCP Nurse Practitioner Family; Visit Provider Dermatology | DX: L40.9 Psoriasis, unspecified (principal) | CPT/HCPCS: 96900 ==

== ENCOUNTER 2022-03-30 12:25 | Outpatient (CLI) | payer MEDICARE, OTHER, SELFPAY | END 2022-03-30 12:26 | disposition home or self-care (01) | LOC: PUVA 04-02 12:25 | PROVIDERS: PCP Nurse Practitioner Family; Visit Provider Dermatology | DX: L40.9 Psoriasis, unspecified (principal) | CPT/HCPCS: 96900 ==

== ENCOUNTER 2022-04-12 08:32 | Outpatient (CLI) | payer MEDICARE, OTHER, SELFPAY | END 2022-04-12 08:33 | disposition home or self-care (01) | LOC: PUVA 08:37 | PROVIDERS: PCP Nurse Practitioner Family; Visit Provider Dermatology | DX: L40.9 Psoriasis, unspecified (principal) | CPT/HCPCS: 96900 ==

== ENCOUNTER 2022-04-20 08:36 | Outpatient (CLI) | payer MEDICARE, OTHER, SELFPAY | END 2022-04-20 08:37 | disposition home or self-care (01) | LOC: PUVA 08:38 | PROVIDERS: PCP Nurse Practitioner Family; Visit Provider Dermatology | DX: L40.9 Psoriasis, unspecified (principal) | CPT/HCPCS: 96900 ==

== ENCOUNTER 2022-04-27 08:36 | Outpatient (CLI) | payer MEDICARE, OTHER, SELFPAY | END 2022-04-27 08:37 | disposition home or self-care (01) | LOC: PUVA 08:37 | PROVIDERS: PCP Nurse Practitioner Family; Visit Provider Dermatology | DX: L40.9 Psoriasis, unspecified (principal) | CPT/HCPCS: 96900 ==

== ENCOUNTER 2022-05-11 08:34 | Outpatient (CLI) | payer MEDICARE, OTHER, SELFPAY | END 2022-05-11 08:35 | disposition home or self-care (01) | LOC: PUVA 08:34 | PROVIDERS: PCP Nurse Practitioner Family; Visit Provider Dermatology | DX: L40.9 Psoriasis, unspecified (principal) | CPT/HCPCS: 96900 ==

== ENCOUNTER 2022-05-17 07:54 | Outpatient (CLI) | payer MEDICARE, OTHER, SELFPAY | END 2022-05-17 07:55 | disposition home or self-care (01) | LOC: PUVA 07:54 | PROVIDERS: PCP Nurse Practitioner Family; Visit Provider Dermatology | DX: L40.9 Psoriasis, unspecified (principal) | CPT/HCPCS: 96900 ==

== ENCOUNTER 2022-05-25 08:30 | Outpatient (CLI) | payer MEDICARE, OTHER, SELFPAY | END 2022-05-25 08:31 | disposition home or self-care (01) | LOC: PUVA 08:30 | PROVIDERS: PCP Nurse Practitioner Family; Visit Provider Dermatology | DX: L40.9 Psoriasis, unspecified (principal) | CPT/HCPCS: 96900 ==

== ENCOUNTER 2022-05-31 08:29 | Outpatient (CLI) | payer MEDICARE, OTHER, SELFPAY | END 2022-05-31 08:30 | disposition home or self-care (01) | LOC: PUVA 08:29 | PROVIDERS: PCP Nurse Practitioner Family; Visit Provider Dermatology | DX: L40.9 Psoriasis, unspecified (principal) | CPT/HCPCS: 96900 ==

== ENCOUNTER 2022-06-08 08:22 | Outpatient (CLI) | payer MEDICARE, OTHER, SELFPAY | END 2022-06-08 08:23 | disposition home or self-care (01) | LOC: PRC 08:24 → PUVA 08:24 | PROVIDERS: PCP Nurse Practitioner Family; Visit Provider Dermatology | DX: L40.9 Psoriasis, unspecified (principal) | CPT/HCPCS: 96900 ==

== ENCOUNTER 2022-06-15 08:35 | Outpatient (CLI) | payer MEDICARE, OTHER, SELFPAY | END 2022-06-15 08:36 | disposition home or self-care (01) | LOC: PUVA 08:35 | PROVIDERS: PCP Nurse Practitioner Family; Visit Provider Dermatology | DX: L40.9 Psoriasis, unspecified (principal) | CPT/HCPCS: 96900 ==

== ENCOUNTER 2022-06-21 08:02 | Outpatient (CLI) | payer MEDICARE, OTHER, SELFPAY | END 2022-06-21 08:03 | disposition home or self-care (01) | LOC: PUVA 08:02 | PROVIDERS: PCP Nurse Practitioner Family; Visit Provider Dermatology | DX: L40.9 Psoriasis, unspecified (principal) | CPT/HCPCS: 96900 ==

== ENCOUNTER 2022-06-29 08:01 | Outpatient (CLI) | payer MEDICARE, OTHER, SELFPAY | END 2022-06-29 08:02 | disposition home or self-care (01) | LOC: PUVA 08:01 | PROVIDERS: PCP Nurse Practitioner Family; Visit Provider Dermatology | DX: L40.9 Psoriasis, unspecified (principal) | CPT/HCPCS: 96900 ==

== ENCOUNTER 2022-07-06 07:38 | Outpatient (CLI) | payer MEDICARE, OTHER, SELFPAY | END 2022-07-06 07:39 | disposition home or self-care (01) | LOC: PUVA 07:39 | PROVIDERS: PCP Nurse Practitioner Family; Visit Provider Dermatology | DX: L40.9 Psoriasis, unspecified (principal) | CPT/HCPCS: 96900 ==

== ENCOUNTER 2022-07-20 08:14 | Outpatient (CLI) | payer MEDICARE, OTHER, SELFPAY | END 2022-07-20 08:15 | disposition home or self-care (01) | LOC: PUVA 08:15 | PROVIDERS: PCP Nurse Practitioner Family; Visit Provider Dermatology | DX: L40.9 Psoriasis, unspecified (principal) | CPT/HCPCS: 96900 ==

== ENCOUNTER 2022-07-27 07:30 | Outpatient (CLI) | payer MEDICARE, OTHER, SELFPAY | END 2022-07-27 07:31 | disposition home or self-care (01) | LOC: PUVA 07:30 | PROVIDERS: PCP Nurse Practitioner Family; Visit Provider Dermatology | DX: L40.9 Psoriasis, unspecified (principal) | CPT/HCPCS: 96900 ==

== ENCOUNTER 2022-08-10 11:17 | Outpatient (CLI) | payer MEDICARE, OTHER, SELFPAY | END 2022-08-10 11:18 | disposition home or self-care (01) | LOC: PUVA 08-12 11:17 | PROVIDERS: PCP Nurse Practitioner Family; Visit Provider Dermatology | DX: L40.9 Psoriasis, unspecified (principal) | CPT/HCPCS: 96900 ==

== ENCOUNTER 2022-08-17 07:59 | Outpatient (CLI) | payer MEDICARE, OTHER, SELFPAY | END 2022-08-17 08:00 | disposition home or self-care (01) | LOC: PUVA 07:59 | PROVIDERS: PCP Nurse Practitioner Family; Visit Provider Dermatology | DX: L40.9 Psoriasis, unspecified (principal) | CPT/HCPCS: 96900 ==

== ENCOUNTER 2022-08-24 08:09 | Outpatient (CLI) | payer MEDICARE, SELFPAY | END 2022-08-24 08:10 | disposition home or self-care (01) | LOC: PUVA 08:09 | PROVIDERS: PCP Nurse Practitioner Family; Visit Provider Dermatology | DX: L40.9 Psoriasis, unspecified (principal) | CPT/HCPCS: 96900 ==

== ENCOUNTER 2022-08-31 08:31 | Outpatient (CLI) | payer MEDICARE, SELFPAY | END 2022-08-31 08:32 | disposition home or self-care (01) | LOC: PUVA 08:31 | PROVIDERS: PCP Nurse Practitioner Family; Visit Provider Dermatology | DX: L40.9 Psoriasis, unspecified (principal) | CPT/HCPCS: 96900 ==

== ENCOUNTER 2022-09-07 08:31 | Outpatient (CLI) | payer MEDICARE, SELFPAY | END 2022-09-07 08:32 | disposition home or self-care (01) | LOC: PUVA 08:31 | PROVIDERS: PCP Nurse Practitioner Family; Visit Provider Dermatology | DX: L40.9 Psoriasis, unspecified (principal) | CPT/HCPCS: 96900 ==

== ENCOUNTER 2022-09-14 08:18 | Outpatient (CLI) | payer MEDICARE, SELFPAY | END 2022-09-14 08:19 | disposition home or self-care (01) | LOC: PUVA 08:18 | PROVIDERS: PCP Nurse Practitioner Family; Visit Provider Dermatology | DX: L40.9 Psoriasis, unspecified (principal) | CPT/HCPCS: 96900 ==

== ENCOUNTER 2022-09-20 07:31 | Outpatient (CLI) | payer MEDICARE, SELFPAY | END 2022-09-20 07:32 | disposition home or self-care (01) | LOC: PUVA 07:31 | PROVIDERS: PCP Nurse Practitioner Family; Visit Provider Dermatology | DX: L40.9 Psoriasis, unspecified (principal) | CPT/HCPCS: 96900 ==

== ENCOUNTER 2022-09-27 07:51 | Outpatient (CLI) | payer MEDICARE, SELFPAY | END 2022-09-27 07:52 | disposition home or self-care (01) | LOC: PUVA 07:51 | PROVIDERS: PCP Nurse Practitioner Family; Visit Provider Dermatology | DX: L40.9 Psoriasis, unspecified (principal) | CPT/HCPCS: 96900 ==

== ENCOUNTER 2022-10-05 08:28 | Outpatient (CLI) | payer MEDICARE, SELFPAY | END 2022-10-05 08:29 | disposition home or self-care (01) | LOC: PUVA 08:29 | PROVIDERS: PCP Nurse Practitioner Family; Visit Provider Dermatology | DX: L40.9 Psoriasis, unspecified (principal) | CPT/HCPCS: 96900 ==

== ENCOUNTER 2022-10-19 01:51 | Outpatient (CLI) | payer MEDICARE, SELFPAY ==
--- NOTE | 2022-10-19 07:30 | DI.MAMMO_ITS ---
Exam(s) MAMMO SCREENING EXAM: MAMMO SCREENING CLINICAL HISTORY: screening,z12.39 TECHNIQUE: Mammograms were interpreted according to the usual protocol including computer analysis w [employer] CAD system, tomosynthesis and C-view imaging. COMPARISON: 2012 through 2021 FINDINGS: The breasts are composed of scattered fibroglandular densities, Breast Density category B. No suspicious masses or suspicious microcalcifications are seen. No skin thickening or abnormal axillary lymph nodes are seen. There has been no significant change from prior exams. IMPRESSION: BI-RADS Category 1, Negative mammogram Yearly screening mammography is recommended. Breast Density - Category B, scattered fibroglandular densities. A negative radiographic report should not delay biopsy if a dominant or clinically suspicious mass is present. Up to ten percent of cancers are not identified on mammography. A negative report may reinforce clinical impression. Adenosis and dense breasts may obscure an underlying neoplasm. False positive reports average 6 to 10%. Patient will receive a letter notifying them of these results.
== END 2022-10-19 02:11 ==
LOC: DI 01:52
PROVIDERS: PCP Nurse Practitioner Family; Visit Provider Nurse Practitioner Family
DX: Z12.31 Encounter for screening mammogram for malignant neoplasm of breast (principal)
CPT/HCPCS: 77063; 77067

== ENCOUNTER 2022-10-19 08:18 | Outpatient (CLI) | payer MEDICARE, SELFPAY | END 2022-10-19 08:19 | disposition home or self-care (01) | LOC: PUVA 08:19 | PROVIDERS: PCP Nurse Practitioner Family; Visit Provider Dermatology | DX: L40.9 Psoriasis, unspecified (principal) | CPT/HCPCS: 96900 ==

== ENCOUNTER 2022-10-26 02:25 | Outpatient (CLI) | payer MEDICARE, SELFPAY ==
[2022-10-26 11:46] LABS: Estimated GFR 58.75 (mL/min/1.73m2); Potassium 3.4 mmol/L (3.5-5.1); Uric Acid 7.3 mg/dL (2.6-6.0)
== END 2022-10-26 02:26 | disposition home or self-care (01) ==
LOC: LBO 02:25
PROVIDERS: PCP Nurse Practitioner Family; Visit Provider Nurse Practitioner Family
DX: I10 Essential (primary) hypertension (principal); M10.9 Gout, unspecified
CPT/HCPCS: 36415; 82565; 84132; 84550

== ENCOUNTER 2022-10-26 08:16 | Outpatient (CLI) | payer MEDICARE, SELFPAY | END 2022-10-26 08:17 | disposition home or self-care (01) | LOC: PUVA 08:16 | PROVIDERS: PCP Nurse Practitioner Family; Visit Provider Dermatology | DX: L40.9 Psoriasis, unspecified (principal) | CPT/HCPCS: 36415; 96900; 82565; 84132; 84550 ==

== ENCOUNTER 2022-11-02 07:39 | Outpatient (CLI) | payer MEDICARE, SELFPAY | END 2022-11-02 07:40 | disposition home or self-care (01) | LOC: PUVA 07:39 | PROVIDERS: PCP Nurse Practitioner Family; Visit Provider Dermatology | DX: L40.9 Psoriasis, unspecified (principal) | CPT/HCPCS: 96900 ==

== ENCOUNTER 2022-11-09 07:40 | Outpatient (CLI) | payer MEDICARE, SELFPAY | END 2022-11-09 07:41 | disposition home or self-care (01) | LOC: PUVA 07:40 | PROVIDERS: PCP Nurse Practitioner Family; Visit Provider Dermatology | DX: L40.9 Psoriasis, unspecified (principal) | CPT/HCPCS: 96900 ==

== ENCOUNTER 2022-11-15 07:26 | Outpatient (CLI) | payer MEDICARE, SELFPAY | END 2022-11-15 07:27 | disposition home or self-care (01) | LOC: PUVA 07:26 | PROVIDERS: PCP Nurse Practitioner Family; Visit Provider Dermatology | DX: L40.9 Psoriasis, unspecified (principal) | CPT/HCPCS: 96900 ==

== ENCOUNTER 2022-11-22 07:10 | Outpatient (CLI) | payer MEDICARE, SELFPAY | END 2022-11-22 07:11 | disposition home or self-care (01) | LOC: PUVA 07:10 | PROVIDERS: PCP Nurse Practitioner Family; Visit Provider Dermatology | DX: L40.9 Psoriasis, unspecified (principal) | CPT/HCPCS: 96900 ==

== ENCOUNTER 2022-11-29 07:16 | Outpatient (CLI) | payer MEDICARE, SELFPAY | END 2022-11-29 07:17 | disposition home or self-care (01) | LOC: PUVA 07:16 | PROVIDERS: PCP Nurse Practitioner Family; Visit Provider Dermatology | DX: L40.9 Psoriasis, unspecified (principal) | CPT/HCPCS: 96900 ==

== ENCOUNTER 2022-12-06 08:35 | Outpatient (CLI) | payer MEDICARE, SELFPAY | END 2022-12-06 08:36 | disposition home or self-care (01) | LOC: PUVA 08:35 | PROVIDERS: PCP Nurse Practitioner Family; Visit Provider Dermatology | DX: L40.9 Psoriasis, unspecified (principal) | CPT/HCPCS: 96900 ==

== ENCOUNTER 2022-12-14 07:32 | Outpatient (CLI) | payer MEDICARE, SELFPAY | END 2022-12-14 07:33 | disposition home or self-care (01) | LOC: PUVA 07:32 | PROVIDERS: PCP Nurse Practitioner Family; Visit Provider Dermatology | DX: L40.9 Psoriasis, unspecified (principal) | CPT/HCPCS: 96900 ==

== ENCOUNTER 2022-12-27 07:40 | Outpatient (CLI) | payer MEDICARE, SELFPAY | END 2022-12-27 07:41 | disposition home or self-care (01) | LOC: PUVA 07:40 | PROVIDERS: PCP Nurse Practitioner Family; Visit Provider Dermatology | DX: L40.9 Psoriasis, unspecified (principal) | CPT/HCPCS: 96900 ==

== ENCOUNTER 2023-01-03 07:40 | Outpatient (CLI) | payer MEDICARE, SELFPAY | END 2023-01-03 07:41 | disposition home or self-care (01) | LOC: PUVA 07:40 | PROVIDERS: PCP Nurse Practitioner Family; Visit Provider Dermatology | DX: L40.9 Psoriasis, unspecified (principal) | CPT/HCPCS: 96900 ==

== ENCOUNTER 2023-01-10 07:57 | Outpatient (CLI) | payer MEDICARE, SELFPAY | END 2023-01-10 07:58 | disposition home or self-care (01) | LOC: PUVA 07:58 | PROVIDERS: PCP Nurse Practitioner Family; Visit Provider Dermatology | DX: L40.9 Psoriasis, unspecified (principal) | CPT/HCPCS: 96900 ==

== ENCOUNTER 2023-01-24 07:36 | Outpatient (CLI) | payer MEDICARE, SELFPAY | END 2023-01-24 07:37 | disposition home or self-care (01) | LOC: PUVA 07:37 | PROVIDERS: PCP Nurse Practitioner Family; Visit Provider Dermatology | DX: L40.9 Psoriasis, unspecified (principal) | CPT/HCPCS: 96900 ==

== ENCOUNTER 2023-01-31 07:31 | Outpatient (CLI) | payer MEDICARE, SELFPAY | END 2023-01-31 07:32 | disposition home or self-care (01) | LOC: PUVA 07:31 | PROVIDERS: PCP Nurse Practitioner Family; Visit Provider Dermatology | DX: L40.9 Psoriasis, unspecified (principal) | CPT/HCPCS: 96900 ==

== ENCOUNTER 2023-02-07 07:12 | Outpatient (CLI) | payer MEDICARE, SELFPAY | END 2023-02-07 07:13 | disposition home or self-care (01) | LOC: PUVA 07:13 | PROVIDERS: PCP Nurse Practitioner Family; Visit Provider Dermatology | DX: L40.9 Psoriasis, unspecified (principal) | CPT/HCPCS: 96900 ==

== ENCOUNTER 2023-02-14 07:49 | Outpatient (CLI) | payer MEDICARE, SELFPAY | END 2023-02-14 07:50 | disposition home or self-care (01) | LOC: PUVA 07:49 | PROVIDERS: PCP Nurse Practitioner Family; Visit Provider Dermatology | DX: L40.9 Psoriasis, unspecified (principal) | CPT/HCPCS: 96900 ==

== ENCOUNTER 2023-02-21 07:49 | Outpatient (CLI) | payer MEDICARE, SELFPAY | END 2023-02-21 07:50 | disposition home or self-care (01) | LOC: PUVA 02-28 07:49 | PROVIDERS: PCP Nurse Practitioner Family; Visit Provider Dermatology | DX: L40.9 Psoriasis, unspecified (principal) | CPT/HCPCS: 96900 ==

== ENCOUNTER 2023-02-28 07:32 | Outpatient (CLI) | payer MEDICARE, SELFPAY | END 2023-02-28 07:33 | disposition home or self-care (01) | LOC: PUVA 07:32 | PROVIDERS: PCP Nurse Practitioner Family; Visit Provider Dermatology | DX: L40.9 Psoriasis, unspecified (principal) | CPT/HCPCS: 96900 ==

== ENCOUNTER 2023-03-14 07:10 | Outpatient (CLI) | payer MEDICARE, SELFPAY | END 2023-03-14 07:11 | disposition home or self-care (01) | LOC: PUVA 07:10 | PROVIDERS: PCP Nurse Practitioner Family; Visit Provider Dermatology | DX: L40.9 Psoriasis, unspecified (principal) | CPT/HCPCS: 96900 ==

== ENCOUNTER 2023-03-22 07:16 | Outpatient (CLI) | payer MEDICARE, SELFPAY | END 2023-03-22 07:17 | disposition home or self-care (01) | LOC: PUVA 07:17 | PROVIDERS: PCP Nurse Practitioner Family; Visit Provider Dermatology | DX: L40.9 Psoriasis, unspecified (principal) | CPT/HCPCS: 96900 ==

== ENCOUNTER 2023-03-28 07:04 | Outpatient (CLI) | payer MEDICARE, SELFPAY | END 2023-03-28 07:05 | disposition home or self-care (01) | LOC: PUVA 07:04 | PROVIDERS: PCP Nurse Practitioner Family; Visit Provider Dermatology | DX: L40.9 Psoriasis, unspecified (principal) | CPT/HCPCS: 96900 ==

== ENCOUNTER 2023-04-11 08:57 | Outpatient (CLI) | payer MEDICARE, SELFPAY | END 2023-04-11 08:58 | disposition home or self-care (01) | LOC: PUVA 08:57 | PROVIDERS: PCP Nurse Practitioner Family; Visit Provider Dermatology | DX: L40.9 Psoriasis, unspecified (principal) | CPT/HCPCS: 96900 ==

== ENCOUNTER 2023-04-18 07:22 | Outpatient (CLI) | payer MEDICARE, SELFPAY | END 2023-04-18 07:23 | disposition home or self-care (01) | LOC: PUVA 07:23 | PROVIDERS: PCP Nurse Practitioner Family; Visit Provider Dermatology | DX: L40.9 Psoriasis, unspecified (principal) | CPT/HCPCS: 96900 ==

== ENCOUNTER 2023-04-25 07:19 | Outpatient (CLI) | payer MEDICARE, SELFPAY | END 2023-04-25 07:20 | disposition home or self-care (01) | LOC: PUVA 07:19 | PROVIDERS: PCP Nurse Practitioner Family; Visit Provider Dermatology | DX: L40.9 Psoriasis, unspecified (principal) | CPT/HCPCS: 96900 ==

== ENCOUNTER 2023-05-02 07:10 | Outpatient (CLI) | payer MEDICARE, SELFPAY | END 2023-05-02 07:11 | disposition home or self-care (01) | LOC: PUVA 07:10 | PROVIDERS: PCP Nurse Practitioner Family; Visit Provider Dermatology | DX: L40.9 Psoriasis, unspecified (principal) | CPT/HCPCS: 96900; 71046; 73630 ==

== ENCOUNTER → 2023-05-02 16:40 | Outpatient (CLI) | payer MEDICARE, SELFPAY ==
--- NOTE | 2023-05-02 08:45 | DI.RAD_ITS ---
Exam(s) XR FOOT LT COMPLETE EXAM: XR FOOT LT COMPLETE CLINICAL HISTORY: hammertoe left foot, M20.42. TECHNIQUE: 2D digital imaging was performed of the left foot. Three images were obtained. AP, obli que and lateral views were obtained. COMPARISON: No exams were available for comparison FINDINGS: BONES: No acute fracture is present. No bony destructive lesion is seen. There is a marked hallux mariposa nia deformity. There is overlapping of the 1st and 2nd toes. There is a small plantar calcaneal spu r. JOINTS: No dislocation present. There are degenerative changes seen of the foot characterized by join t space narrowing and osteophytes. The findings are most marked at the 1st MTP joint. SOFT TISSUE: Normal. IMPRESSION: 1. Chronic changes of the left foot including hammertoe deformities and degenerative changes. 2. No acute fracture or dislocation. DATA REPOSITORY: RADIATION DOSE DELIVERED:
--- NOTE | 2023-05-02 08:45 | DI.RAD_ITS ---
Exam(s) XR CHEST 2V PA LATERAL EXAM: XR CHEST 2V PA LATERAL CLINICAL HISTORY: Pre-op workup for hammertoe cici feet, Z01.818, M20.42, M20.41 TECHNIQUE: 2D digital imaging was performed of the chest. Two images were obtained. PA and lateral views were obtained. COMPARISON: No exams were available for comparison FINDINGS: MEDIASTINUM: Normal. HEART: Normal. PULMONARY VASCULATURE: Normal. LUNGS: Clear. PLEURAL SPACE: No pleural effusion or pneumothorax. BONE:Within normal limits for the patient's age. OTHER FINDINGS:Normal. IMPRESSION: No acute pulmonary findings. DATA REPOSITORY: RADIATION DOSE DELIVERED:
--- NOTE | 2023-05-02 08:45 | DI.RAD_ITS ---
Exam(s) XR FOOT RT COMPLETE EXAM: XR FOOT RT COMPLETE CLINICAL HISTORY: hammertoe rt foot, M20.41. TECHNIQUE: 2D digital imaging was performed of the right foot. Three images were obtained. AP, obl ique and lateral views were obtained. COMPARISON: CR RIGHT ANKLE COMPLETE from 10/09/2010 FINDINGS: BONES: No acute fracture is present. No bony destructive lesion is seen. There is a marked hallux mariposa nia deformity. There is overlapping of the 1st and 2nd toes. There are 3rd, 4th and 5th hammertoe d eformities. JOINTS: No dislocation present. There are marked degenerative changes seen at the 1st MTP joint dona cterized by joint space narrowing and osteophytes. Degenerative changes are also seen at the articul ation between the sesamoid in the 1st metatarsal head and the interphalangeal joints of the toes. Th ere also mild degenerative changes seen at the tarsometatarsal joints. SOFT TISSUE: Normal. IMPRESSION: 1. Chronic changes of the right foot including hallux valgus deformity, hammertoe deformities and deg enerative changes. 2. No acute fracture or dislocation. DATA REPOSITORY: RADIATION DOSE DELIVERED:
== END ==
PROVIDERS: PCP Nurse Practitioner Family; Visit Provider Podiatrist
DX: M20.41 Other hammer toe(s) (acquired), right foot (principal); M20.42 Other hammer toe(s) (acquired), left foot; Z01.818 Encounter for other preprocedural examination
CPT/HCPCS: 71046; 73630

== ENCOUNTER 2023-05-09 07:22 | Outpatient (CLI) | payer MEDICARE, SELFPAY | END 2023-05-09 07:23 | disposition home or self-care (01) | LOC: PUVA 07:22 | PROVIDERS: PCP Nurse Practitioner Family; Visit Provider Dermatology | DX: L40.9 Psoriasis, unspecified (principal) | CPT/HCPCS: 96900 ==

== ENCOUNTER 2023-05-09 08:43 | Outpatient (CLI) | payer MEDICARE, SELFPAY ==
--- NOTE | 2023-05-09 08:45 | RT.EKG_ITS ---
APPROVED REPORT Exam: Resting ECG Reason for Exam: Preop planning Patient Location: O HR:77 bpm ECG Measurements Heart Rate 77 AXIS CA 136 P 73 QRSd 109 QRS 38 QT 383 T 54 QTc 434 Conclusion Sinus rhythm...normal P axis, V-rate 50- 99 Otherwise normal ECG
== END 2023-05-09 08:44 | disposition home or self-care (01) ==
LOC: CARDOPNVT 08:43
PROVIDERS: PCP Nurse Practitioner Family; Visit Provider Podiatrist
DX: M20.42 Other hammer toe(s) (acquired), left foot (principal); Z01.818 Encounter for other preprocedural examination
CPT/HCPCS: 96900; 93005; 93010

== ENCOUNTER 2023-05-17 07:15 | Outpatient (CLI) | payer MEDICARE, SELFPAY | END 2023-05-17 07:16 | LOC: PUVA 07:16 | PROVIDERS: PCP Nurse Practitioner Family; Visit Provider Dermatology | DX: L40.9 Psoriasis, unspecified (principal) | CPT/HCPCS: 96900 ==

== ENCOUNTER → 2023-05-19 10:46 | Outpatient (BNVA) | payer MEDICARE, SELFPAY | PROVIDERS: PCP Nurse Practitioner Family; Referring Provider Nurse Practitioner Family; Visit Provider Podiatrist | CPT/HCPCS: NC OV ==

== ENCOUNTER 2023-05-23 06:14 | Day surgery (SDC) | payer MEDICARE, SELFPAY ==
[2023-05-23 06:29] VITALS: BP 148/71; PULSE 72; RESP 14; TEMP 36.7; O2SAT 96
[2023-05-23] MEDS: Celecoxib 200 MG CAP PO (06:39)
[2023-05-23] MEDS: Gabapentin 300 MG CAP PO (06:40)
[2023-05-23] MEDS: Lactated Ringers 1,000 ML 30 ML IV (07:00)
[2023-05-23 07:04] LABS: Abs Immature Grans 0.02 10^3/uL (0.0-0.06); Absolute Basophil Count 0.05 10^3/uL (0.0-0.2); Absolute Eosinophil Count 0.13 10^3/uL (0.0-0.7); Absolute Lymphocyte Count 1.62 10^3/uL (1.2-3.4); Absolute Monocyte Count 0.59 10^3/uL (0.1-0.8); Absolute Neutrophil Count 5.53 10^3/uL (1.2-6.7); Basophils % 0.6; Eosinophils % 1.6; HCT 41.5 % (36.0-46.0); HGB 13.9 g/dL (11.2-15.7); Immature Grans % 0.3; Lymphocytes % 20.4; MCH 31.6 pg (27.0-33.0); MCHC 33.5 % (32.0-36.0); MCV 94 fL (80-95); MPV 10.1 fL (8.0-11.0); Monocytes % 7.4; Neutrophils % 69.7; Platelet Count 259 10^3/uL (130-400); RDW 11.7 % (11.7-14.6); RDW-SD 40.4 fL; WBC 7.94 10^3/uL (4.4-10.8)
--- NOTE | 2023-05-23 07:13 | ANES.PREOP_ITS ---
General Info Date of Service Date Performed: 05/23/23 Height: 5 ft 2 in Weight: 74.3 kg Body Mass Index (BMI): 29.9 Surgical Procedure: Operation Date: 05/23/23 07:40 Proposed Procedure Side Surgeon p Toe Amputation, Lt second toe, possible Rt second toe Bilateral Monica Whyte DPM Meds Allergies and Home Medications Allergies Allergy/AdvReac Type Severity Reaction Status Date / Time apple AdvReac Unknown Itching Verified 05/23/23 06:22 atorvastatin AdvReac Unknown MYALGIAS Verified 05/23/23 06:22 ezetimibe AdvReac Unknown MYALGIAS Verified 05/23/23 06:22 lovastatin AdvReac Unknown NAUSEA Verified 05/23/23 06:22 potato AdvReac Unknown Itching Verified 05/23/23 06:22 RED YEAST RICE AdvReac Unknown NAUSEA Uncoded 05/23/23 06:22 Home Medication Medication Instructions Recorded aspirin 81 mg tablet,delayed 81 mg PO DAILY 09/19/15 release (Aspir-) acetaminophen 650 mg 650 mg PO PRN PRN 01/25/22 tablet,extended release colchicine (gout) 0.6 mg tablet 0.6 mg PO DAILY #60 tabs 08/27/22 lisinopril 20 1 tab PO DAILY #90 tab-caps 11/15/22 mg-hydrochlorothiazide 12.5 mg tablet (Zestoretic) omeprazole 20 mg capsule,delayed 20 mg PO DAILY #90 tab-caps 11/15/22 release omeprazole 20 mg capsule,delayed 20 mg PO DAILY increase reflux #90 05/11/23 release caps Current Visit Medications: Current Medications Generic Name Dose Route Start Last Admin Trade Name Ziyad PRN Reason Stop Dose Admin Celecoxib 200 mg 05/23/23 06:00 05/23/23 06:39 Celecoxib 200 Mg Cap PO 05/23/23 16:00 200 mg PREOP VERO Administration Gabapentin 300 - 600 mg 05/23/23 06:00 05/23/23 06:40 Gabapentin 300 Mg Cap PO 05/23/23 16:00 300 mg PREOP VERO Administration Ringer's Solution 1,000 mls @ 30 mls/hr 05/23/23 06:00 05/23/23 07:00 IV 06/19/23 23:59 30 mls/hr INFUSION VERO Administration IV Miscellaneous Supplies 1 each 05/23/23 06:00 Iv Access IV 12/03/23 23:59 DIRECTED VERO Sodium Chloride 0 ml 05/23/23 06:00 Normal Saline Flush 10 Ml Syr IV 06/19/23 23:59 PRN PRN Sodium Chloride 0 ml 05/23/23 06:00 Normal Saline 10 Ml Vial IJ 06/19/23 23:59 DIRECTED PRN Sterile Water 0 ml 05/23/23 06:00 Water,Injection,Sterile 10 Ml Vial IJ 06/19/23 23:59 DIRECTED PRN PFSH Active Problems Active Problems: Problem Status Onset Code GERD (gastroesophageal reflux disease) K21.9 Bunion, right foot M21.611 Bunion, left foot M21.612 Pre-op evaluation Z01.818 Hammertoe of right foot M20.41 Hammertoe of left foot M20.42 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 Abdominal pain R10.9 Undiagnosed cardiac murmurs R01.1 Psoriasis L40.9 Peptic reflux disease 06/19/13 K21.9 Hyperlipidemia E78.5 Essential hypertension 06/18/13 I10 Abnormal mammogram, unspecified 06/16/06 R92.8 Medical History Medical History Gout Retinal tear of right eye Medical History Comments:: hard time waking up with colonoscopy Surgical History Surgical History History of tubal ligation History of cataract surgery History of eye surgery Macular hole per patient History of colonoscopy Tobacco Smoking/Tobacco Use Status: Former Tobacco Use Passive smoking exposure: Yes Second hand exposure: No Alcohol Alcohol Intake: current Alcohol intake frequency: a few times a month Alcohol type: beer Substance Use Substance use: Never Substance use type: does not use Details: alcohol: t-7, one beer Vital Signs and Lab Results Vital Signs Most Recent Vital Signs in EMR: Most Recent Vital Signs Temp Pulse Resp BP Pulse Ox 36.7 C 72 14 148/71 H 96 05/23/23 06:29 05/23/23 06:29 05/23/23 06:29 05/23/23 06:29 05/23/23 06:29 Lab Results 05/23/23 06:55 05/23/23 06:55 Blood Type / Crossmatch: 2 No Data to Display Complete Blood Count: 2 White Blood Count 7.94 10^3/uL (4.4-10.8) 05/23/23 06:55 Red Blood Count 4.40 10^6/uL (3.93-5.22) 05/23/23 06:55 Hemoglobin 13.9 g/dL (11.2-15.7) 05/23/23 06:55 Hematocrit 41.5 % (36.0-46.0) 05/23/23 06:55 Platelet Count 259 10^3/uL (130-400) 05/23/23 06:55 Complete Metabolic Panel: 2 No Data to Display Liver Function Panel: 2 No Data to Display Coagulation Panel: 2 No Data to Display Cardiac Panel: 2 No Data to Display Arterial Blood Gas: 2 No Data to Display Venous Blood Gas: 2 No Data to Display Pancreas Panel: 2 No Data to Display Thyroid Panel: 2 No Data to Display Infectious Disease: 2 No Data to Display Blood Cultures: 2 No Data to Display Toxicology Panel: 2 No Data to Display Imaging and Studies Imaging and Studies Study information below may be from another EMR and interpreted by another provider. Please see original notes in EMR for more complete details. EKG Summary: Conclusion Sinus rhythm...normal P axis, V-rate 50- 99 05/09/23 Echocardiogram Summary: Conclusion Left Ventricle : The left ventricle is normal size. The left ventricular systolic function is normal. The left ventricular ejection fraction is within the normal range. There is normal left ventricular wall thickness. There is normal LV segmental wall motion. The left ventricular diastolic function is normal. LVEF is 58%. Right Ventricle : The right ventricle is normal size. The right ventricular systolic function is normal. The RVSP is 20.1mmHg. Atria : The left atrium size is normal. The right atrium size is normal. Aortic Valve : The aortic valve is normal in structure. Mild aortic regurgitation. There is no aortic valvular stenosis. Great Vessels : The aortic root is normal in size. The ascending aorta is normal in size. IVC is normal in size and collapses >50% with inspiration. Please see remainder of study for further details. 08/28/20 Anesthesia Assessment and Plan Anesthesia History Personal History: No History of Anesthesia Complications and Delayed Emergence Family History: No Family History of Anesthesia Complications Exercise Tolerance Exercise Tolerance: Metabolic Equivalents>4 Pertinent Negatives Pertinent Negatives: No Major Cardiovascular Symptoms or Complaints and No Major Pulmonary Symptoms or Complaints Cardiac & Pulmonary Exam Cardiac Exam: Normal S1/S2 Heart Sounds and Heart Murmur Present Pulmonary Exam: Clear Bilateral Breath Sounds Implantable Cardiac Device Does patient have a Pacemaker or an ICD?: No Airway Exam Known Difficult Airway: No Mallampati Class: 3 Mouth Opening: Normal (> 3cm) Thyromental Distance: Greater than 3 cm Neck Range of Motion: Full ROM Neck Circumference: Normal Teeth Condition: Normal Dentition ASA Classification ASA Score: ASA 2 Emergency Case?: No NPO Status NPO Status: NPO Clears >2 hours, Solids >8 hours Anesthesia Plan Resuscitation Status: Full Code Anesthesia Technique: General Anesthesia Airway Planned: Natural Airway Monitors Used: Standard Monitors
[2023-05-23 07:14] VITALS: BMI 29.9
[2023-05-23 07:26] LABS: Anion Gap 8.9 mmol/L (3-11); BUN 25 mg/dL (7-18); CO2 29.1 mmol/L (21.0-32.0); Calcium 9.6 mg/dL (8.5-10.1); Chloride 101 mmol/L (98-107); Estimated GFR 58.39 (mL/min/1.73m2); Glucose 116 mg/dL (74-106); Potassium 3.4 mmol/L (3.5-5.1); Sodium 139 mmol/L (136-145)
[2023-05-23] MEDS: Lidocaine 1% Pres-Free 30 ML VIAL (08:07)
[2023-05-23 08:29] VITALS: BP 101/47; PULSE 72; RESP 16; TEMP 36.1; O2SAT 93
--- NOTE | 2023-05-23 08:32 | W.PM.DSUDISC ---
Date of service: 05/23/23 Time of Service: 07:30 Discharge Plan Disposition Patient Disposition: Home Condition: Stable Discharge Details Attending Provider: Monica Whyte Primary Care Provider: Timoteo Freeman Home Meds and New Rx's Prescriptions: No Action omeprazole 20 mg capsule,delayed release(DR/EC) 20 mg PO DAILY Qty: 90 3RF Rx Instructions: Take one additional pill if your acid reflux is worse than usual. colchicine (gout) 0.6 mg tablet 0.6 mg PO DAILY Qty: 60 2RF Hold Instructions: Pt Stopped/Never Started Rx Instructions: Take two initially to equal 1.2mg. then take 0.6mg after one hour. On second day start 0.6mg twice daily until pain free and flare-up is over. aspirin [Aspir-81] 81 MG tablet,delayed release (DR/EC) 81 mg PO DAILY lisinopril-hydrochlorothiazide [Zestoretic] 20-12.5 mg tablet 1 tab PO DAILY Qty: 90 4RF omeprazole 20 mg capsule,delayed release(DR/EC) 20 mg PO DAILY Qty: 90 4RF acetaminophen [Tylenol Arthritis] 650 mg Tablet Extended Release 650 mg PO PRN PRN Discharge Instructions Equipment/Supplies: Non-Weight Bearing Crutches Activity:: Elevate Remove Dressings/Wound Care:: Do Not Remove Shower/Bathe:: Cover Diet:: As Tolerated Discharge Orders Discharge Orders: Discharge Order (Routine); Ordered 05/23/23 Ordered By: Monica Whyte
--- NOTE | 2023-05-23 08:44 | ROE_ITS ---
Date of service: 05/23/23 Time of Service: 07:30 Operative Note Operative Note DATE OF PROCEDURE: 05/23/23 PRE-OP DIAGNOSIS: Painful hammertoe, left second toe POST-OP DIAGNOSIS: same PROCEDURE: Amputation, left second toe SURGEON: Monica Whyte ANESTHESIA TYPE: Local By Surgeon (20 mL 1% lidocaine plain, 10 mL 0.5% ropivacaine plain) and General:No Airway Refer to Anesthesia Record ESTIMATED BLOOD LOSS: 10 PATHOLOGY: none sent COMPLICATIONS: None Patient was transported to: PACU Patient's condition: stable Indications: This is a 77-year-old female patient with a painful left second toe with a corn to the plantar aspect of the left second toe secondary to overlapping of the second toe on the hallux. I discussed the risks benefits and possible complications of the procedure in detail with the patient including but not limited to pain, nerve pain, CRPS, bleeding, hematoma formation, seroma formation, nerve pain, nerve injury, delayed healing, wound dehiscence, need for further surgery or amputation, floating toe flail toe, worsening of the hammertoe, hallux varus deformity has excess planed to the patient as the toe moving in the opposite direction that it currently is not, DVT, PE, stroke, DE or even with anesthesia. No guarantees or warranties were made or implied. Medical clearance in. Patient consent form was signed reviewed and in chart. No contraindications noted to the procedure at this time. Findings: Second toe overlapping the hallux with a painful plantar corn at risk for ulceration. Procedure Description: Patient was identified in preop holding. Site was marked. Consent form was signed reviewed in chart. Medical clearance noted to be in chart. No contraindications were noted to the procedure. Patient was brought to the operating room placed on the operating table in supine position with the anesth esia team. After induction of general anesthesia an ankle tourniquet was applied to the left ankle which was not inflated during the procedure. Analgesia was obtained by infiltrating 10 mL of 1% lidocaine plain and via a proximal digital block. The left lower extremity was then scrubbed prepped and draped in the usual aseptic manner. 2 semielliptical incisions were then planned with a sterile skin marker. An incision was then made using a sterile #15 blade. Patient demonstrated pain at this time and another 10 mL of 1% lidocaine plain was injected to the site. The incision was then carried on forward however patient demonstrated pain again. At this time 10 mL 0.5% ropivacaine was then infiltrated around the site. The incision was then deepened using a sterile #15 blade through the skin and subcutaneous tissue all vital neurovascular structures were reflected medially lateral and laterally proximally and distally. All bleeders were ligated and cauterized as indicated. The incision was carried to the level of bone where the bone was then freed of all periosteal attachments. Using a bone cutter, the toe was amputated at the level of the base of the proximal phalanx part of the base of the proximal phalanx was left intact to maintain soft tissue attachments and prior prevent worsening contractures. All sharp edges were then rasped using a bone rasp. The incision site was then irrigated using copious amounts of sterile saline. Deep sutures were then placed with 2-0 Vicryl. Skin was then reapproximated using 3-0 Prolene. Dressings were then applied with Xeroform gauze, 4 x 4, Kerlix and an Radu wrap. Surgical shoe was then applied. Patient tolerated procedure and anesthesia well with vital signs stable and vascular status intact to the left lower extremity. Patient was transferred to PACU for further monitoring. She is to be discharged home. Patient is to keep her dressings clean dry and intact. He is to keep the left lower extremity elevated at all times. She may use crutches for ambulation. She was advised and encouraged to apply heel weightbearing only for transfers. She has an appointment in office for . Patient was sent pain medic ations.
[2023-05-23 09:05] VITALS: BP 141/48; PULSE 68; RESP 16; TEMP 36.6; O2SAT 97
--- NOTE | 2023-05-23 09:07 | W.ANESPOSTOP ---
Postoperative Evaluation Date, Time and Location Date Performed: 05/23/23 Time Performed: 09:07 Patient Location: Day Surgery Unit Vital Signs Most Recent Imported Vital Signs: Most Recent Vital Signs Temp Pulse Resp BP Pulse Ox 36.1 C L 72 16 101/47 L 93 05/23/23 08:29 05/23/23 08:29 05/23/23 08:29 05/23/23 08:29 05/23/23 08:29 Pain Score Most Recent Pain Score: Most Recent Pain Score Pain Level 0 05/23/23 06:29 Assessment Mental Status: Awake (Alert & Oriented to Patient Baseline) Airway and Respiratory Function: Patent airway with normal (patient baseline) respiratory exam Cardiovascular Function: Hemodynamically Stable Hydration Status: Adequately Hydrated Nausea & Vomiting: No Nausea or Vomiting Pain: Pt. Denies Any Pain Peripheral Nerve Block: Patient did not receive a nerve block
== END 2023-05-23 10:10 | disposition home or self-care (01) ==
PROVIDERS: PCP Nurse Practitioner Family; Visit Provider Podiatrist
PROC: (CPT 28825; principal; 2023-05-23 07:30)
DX: M20.42 Other hammer toe(s) (acquired), left foot (principal); I10 Essential (primary) hypertension; E78.5 Hyperlipidemia, unspecified; Z79.82 Long term (current) use of aspirin; Z79.899 Other long term (current) drug therapy
CPT/HCPCS: 28825; 00123; 36415; 80048; 85025; J0690; J2001; J2405

== ENCOUNTER → 2023-05-26 09:31 | Outpatient (BNVA) | payer MEDICARE, SELFPAY | PROVIDERS: PCP Nurse Practitioner Family; Referring Provider Nurse Practitioner Family; Visit Provider Podiatrist | DX: Z47.89 Encounter for other orthopedic aftercare (principal); M20.42 Other hammer toe(s) (acquired), left foot; M20.41 Other hammer toe(s) (acquired), right foot; M21.612 Bunion of left foot; M21.611 Bunion of right foot | CPT/HCPCS: 99024 ==

== ENCOUNTER → 2023-06-02 02:55 | Outpatient (CLI) | payer MEDICARE, SELFPAY ==
--- NOTE | 2023-06-02 09:17 | DI.RAD_ITS ---
Exam(s) XR FOOT LT COMPLETE EXAM: XR FOOT LT COMPLETE CLINICAL HISTORY: Postop,HAMMERTOE LT FOOT,M20.42. TECHNIQUE: 2D digital imaging was performed. Three views. COMPARISON: CR XR FOOT LT COMPLETE from 05/02/2023 FINDINGS: BONES: No acute fracture is present. Patient is status post amputation the majority of the 2nd toe w ith or small portion of the base remaining present. JOINTS: No dislocation present. Degenerative changes at 1st MTP joint and hallux valgus. SOFT TISSUE: Normal overlying gauze. 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 DATA REPOSITORY: RADIATION DOSE DELIVERED:
== END ==
PROVIDERS: PCP Nurse Practitioner Family; Visit Provider Podiatrist
DX: Z47.81 Encounter for orthopedic aftercare following surgical amputation (principal)
CPT/HCPCS: 73630

== ENCOUNTER 2023-06-06 07:27 | Outpatient (CLI) | payer MEDICARE, SELFPAY | END 2023-06-06 07:28 | disposition home or self-care (01) | LOC: PUVA 07:27 | PROVIDERS: PCP Nurse Practitioner Family; Visit Provider Dermatology | DX: L40.9 Psoriasis, unspecified (principal) | CPT/HCPCS: 96900 ==

== ENCOUNTER → 2023-06-07 13:42 | Outpatient (BNVA) | payer MEDICARE, SELFPAY | PROVIDERS: PCP Nurse Practitioner Family; Referring Provider Nurse Practitioner Family; Visit Provider Podiatrist | DX: Z47.89 Encounter for other orthopedic aftercare (principal); Z87.39 Personal history of other diseases of the musculoskeletal system and connective tissue; M21.612 Bunion of left foot; M21.611 Bunion of right foot | CPT/HCPCS: 99024 ==

== ENCOUNTER 2023-07-05 07:26 | Outpatient (CLI) | payer MEDICARE, SELFPAY | END 2023-07-05 07:27 | disposition home or self-care (01) | LOC: PUVA 07:26 | PROVIDERS: PCP Nurse Practitioner Family; Visit Provider Dermatology | DX: L40.9 Psoriasis, unspecified (principal) | CPT/HCPCS: 96900 ==

== ENCOUNTER 2023-07-12 07:59 | Outpatient (CLI) | payer MEDICARE, SELFPAY | END 2023-07-12 08:00 | disposition home or self-care (01) | LOC: PUVA 07:59 | PROVIDERS: PCP Nurse Practitioner Family; Visit Provider Dermatology | DX: L40.9 Psoriasis, unspecified (principal) | CPT/HCPCS: 96900 ==

== ENCOUNTER 2023-07-19 20:05 | Outpatient (CLI) | payer MEDICARE, SELFPAY | END 2023-07-19 20:06 | disposition home or self-care (01) | LOC: PUVA 20:05 | PROVIDERS: PCP Nurse Practitioner Family; Visit Provider Dermatology | DX: L40.9 Psoriasis, unspecified (principal) | CPT/HCPCS: 96900 ==

== ENCOUNTER 2023-07-26 07:23 | Outpatient (CLI) | payer MEDICARE, SELFPAY | END 2023-07-26 07:24 | disposition home or self-care (01) | LOC: PUVA 07:24 | PROVIDERS: PCP Nurse Practitioner Family; Visit Provider Dermatology | DX: L40.9 Psoriasis, unspecified (principal) | CPT/HCPCS: 96900 ==

== ENCOUNTER 2023-08-02 07:08 | Outpatient (CLI) | payer MEDICARE, SELFPAY | END 2023-08-02 07:09 | disposition home or self-care (01) | LOC: PUVA 07:08 | PROVIDERS: PCP Nurse Practitioner Family; Visit Provider Dermatology | DX: L40.9 Psoriasis, unspecified (principal) | CPT/HCPCS: 96900 ==

== ENCOUNTER 2023-08-09 09:11 | Outpatient (CLI) | payer MEDICARE, SELFPAY | END 2023-08-09 09:12 | disposition home or self-care (01) | LOC: PUVA 09:12 | PROVIDERS: PCP Nurse Practitioner Family; Visit Provider Dermatology | DX: L40.9 Psoriasis, unspecified (principal) | CPT/HCPCS: 96900 ==

== ENCOUNTER 2023-08-16 07:14 | Outpatient (CLI) | payer MEDICARE, SELFPAY | END 2023-08-16 07:15 | disposition home or self-care (01) | LOC: PUVA 07:15 | PROVIDERS: PCP Nurse Practitioner Family; Visit Provider Dermatology | DX: L40.9 Psoriasis, unspecified (principal) | CPT/HCPCS: 96900; 73502 ==

== ENCOUNTER → 2023-08-16 14:56 | Outpatient (CLI) | payer MEDICARE, SELFPAY ==
--- NOTE | 2023-08-16 12:06 | DI.RAD_ITS ---
Exam(s) XR HIP RT COMPLETE AP PELVIS EXAM: XR HIP RT COMPLETE AP PELVIS CLINICAL HISTORY: evaluate pathology M25.551 PAIN RT HIP. TECHNIQUE: 2D digital imaging was performed. COMPARISON: No exams were available for comparison FINDINGS: Two views. No evidence of pelvic nor hip fracture. Additional lateral view of the right hip reveals moderate yeni int space narrowing and marginal femoral head osteophytes. Also noted is disc space narrowing in the lumbar spine. IMPRESSION: Moderate degenerative changes right hip. DATA REPOSITORY: RADIATION DOSE DELIVERED:
== END ==
PROVIDERS: PCP Nurse Practitioner Family; Visit Provider Nurse Practitioner Family
DX: M16.11 Unilateral primary osteoarthritis, right hip (principal)
CPT/HCPCS: 73502

== ENCOUNTER 2023-08-23 07:05 | Outpatient (CLI) | payer MEDICARE, SELFPAY | END 2023-08-23 07:06 | disposition home or self-care (01) | LOC: PUVA 07:05 | PROVIDERS: PCP Nurse Practitioner Family; Visit Provider Dermatology | DX: L40.9 Psoriasis, unspecified (principal) | CPT/HCPCS: 96900 ==

== ENCOUNTER 2023-08-30 06:58 | Outpatient (CLI) | payer MEDICARE, SELFPAY | END 2023-08-30 06:59 | disposition home or self-care (01) | LOC: PUVA 06:58 | PROVIDERS: PCP Nurse Practitioner Family; Visit Provider Dermatology | DX: L40.9 Psoriasis, unspecified (principal) | CPT/HCPCS: 96900 ==

== ENCOUNTER 2023-09-06 07:03 | Outpatient (CLI) | payer MEDICARE, SELFPAY | END 2023-09-06 07:04 | disposition home or self-care (01) | LOC: PUVA 07:03 | PROVIDERS: PCP Nurse Practitioner Family; Visit Provider Dermatology | DX: L40.9 Psoriasis, unspecified (principal) | CPT/HCPCS: 96900 ==

== ENCOUNTER 2023-09-13 07:03 | Outpatient (CLI) | payer MEDICARE, SELFPAY | END 2023-09-13 07:04 | disposition home or self-care (01) | LOC: PUVA 07:03 | PROVIDERS: PCP Nurse Practitioner Family; Visit Provider Dermatology | DX: L40.9 Psoriasis, unspecified (principal) | CPT/HCPCS: 96900 ==

== ENCOUNTER 2023-09-20 07:06 | Outpatient (CLI) | payer MEDICARE, SELFPAY | END 2023-09-20 07:07 | disposition home or self-care (01) | LOC: PUVA 07:06 | PROVIDERS: PCP Nurse Practitioner Family; Visit Provider Dermatology | DX: L40.9 Psoriasis, unspecified (principal) | CPT/HCPCS: 96900 ==

== ENCOUNTER 2023-09-27 07:03 | Outpatient (CLI) | payer MEDICARE, SELFPAY | END 2023-09-27 07:04 | disposition home or self-care (01) | LOC: PUVA 07:04 | PROVIDERS: PCP Nurse Practitioner Family; Visit Provider Dermatology | DX: L40.9 Psoriasis, unspecified (principal) | CPT/HCPCS: 96900 ==

== ENCOUNTER 2023-10-04 07:04 | Outpatient (CLI) | payer MEDICARE, SELFPAY | END 2023-10-04 07:05 | disposition home or self-care (01) | LOC: PUVA 07:04 | PROVIDERS: PCP Nurse Practitioner Family; Visit Provider Dermatology | DX: L40.9 Psoriasis, unspecified (principal) | CPT/HCPCS: 96900 ==

== ENCOUNTER 2023-10-11 07:21 | Outpatient (CLI) | payer MEDICARE, SELFPAY | END 2023-10-11 07:22 | disposition home or self-care (01) | LOC: PUVA 07:21 | PROVIDERS: PCP Nurse Practitioner Family; Visit Provider Dermatology | DX: L40.9 Psoriasis, unspecified (principal) | CPT/HCPCS: 96900 ==

== ENCOUNTER 2023-10-18 07:16 | Outpatient (CLI) | payer MEDICARE, SELFPAY | END 2023-10-18 07:17 | disposition home or self-care (01) | LOC: PUVA 07:16 | PROVIDERS: PCP Nurse Practitioner Family; Visit Provider Dermatology | DX: L40.9 Psoriasis, unspecified (principal) | CPT/HCPCS: 96900 ==

== ENCOUNTER 2023-10-25 07:14 | Outpatient (CLI) | payer MEDICARE, SELFPAY | END 2023-10-25 07:15 | disposition home or self-care (01) | LOC: PUVA 07:14 | PROVIDERS: PCP Nurse Practitioner Family; Visit Provider Dermatology | DX: L40.9 Psoriasis, unspecified (principal) | CPT/HCPCS: 96900 ==

== ENCOUNTER → 2023-10-26 03:31 | Outpatient (CLI) | payer MEDICARE, SELFPAY ==
--- NOTE | 2023-10-26 07:15 | DI.MAMMO_ITS ---
Exam(s) MAMMO SCREENING EXAM: MAMMO SCREENING CLINICAL HISTORY: screening,z12.39. TECHNIQUE: Bilateral full field digital CC and MLO mammographic images were obtained with 3D tomosyn thesis and utilizing computer aided detection (CAD). COMPARISON: Prior mammograms were reviewed. FINDINGS: There has been no significant change in the appearance and distribution of the fibroglandular tissue. Small nodular density the in the left breast is unchanged prior mammograms. There are no new spiculated masses nor malignant appearing microcalcification groups. There is no significant architectural distortion nor skin thickening-retraction. IMPRESSION: No radiographic evidence of malignancy. Stable benign findings. BI-RADS Category 2 - Benign Findings Breast Density - Category A - Almost entirely fatty Breast density Category C or D implies that the patient has dense breast tissue. Dense breast tissue can make it harder to find cancer on a mammogram. Dense breast tissue is also associated with an incr eased risk of breast cancer. This information about the result of the mammogram report was provided to the patient to raise their awareness. Use this report when you speak with the patient about their risks for breast cancer, which includes their family history. At that time, you may recommend additional screening tests (Ultrasoun d or MRI) as these tests may add significant information. A negative radiographic report should not delay biopsy if a dominant or clinically suspicious mass is present. Up to ten percent of cancers are not identified on mammography. A negative report may reinforce clinical impression. Adenosis and dense breasts may obscure an underlying neoplasm. False positive reports average 6 to 10%. Patient will receive a letter notifying them of these results.
== END ==
PROVIDERS: PCP Nurse Practitioner Family; Visit Provider Nurse Practitioner Family
DX: Z12.31 Encounter for screening mammogram for malignant neoplasm of breast (principal); N60.82 Other benign mammary dysplasias of left breast; R92.313 Mammographic fatty tissue density, bilateral breasts
CPT/HCPCS: 77063; 77067

== ENCOUNTER 2023-11-08 07:17 | Outpatient (CLI) | payer MEDICARE, SELFPAY | END 2023-11-08 07:18 | disposition home or self-care (01) | LOC: PUVA 07:17 | PROVIDERS: PCP Nurse Practitioner Family; Visit Provider Dermatology | DX: L40.9 Psoriasis, unspecified (principal) | CPT/HCPCS: 96900 ==

== ENCOUNTER 2023-11-15 07:02 | Outpatient (CLI) | payer MEDICARE, SELFPAY | END 2023-11-15 07:03 | disposition home or self-care (01) | LOC: PUVA 07:02 | PROVIDERS: PCP Nurse Practitioner Family; Visit Provider Dermatology | DX: L40.9 Psoriasis, unspecified (principal) | CPT/HCPCS: 96900 ==

== ENCOUNTER 2023-11-22 07:05 | Outpatient (CLI) | payer MEDICARE, SELFPAY | END 2023-11-22 07:06 | disposition home or self-care (01) | LOC: PUVA 07:05 | PROVIDERS: PCP Nurse Practitioner Family; Visit Provider Dermatology | DX: L40.9 Psoriasis, unspecified (principal) | CPT/HCPCS: 96900 ==

== ENCOUNTER 2023-11-29 07:31 | Outpatient (CLI) | payer MEDICARE, SELFPAY | END 2023-11-29 07:32 | disposition home or self-care (01) | LOC: PUVA 07:32 | PROVIDERS: PCP Nurse Practitioner Family; Visit Provider Dermatology | DX: L40.9 Psoriasis, unspecified (principal) | CPT/HCPCS: 96900 ==

== ENCOUNTER 2023-12-06 06:58 | Outpatient (CLI) | payer MEDICARE, SELFPAY | END 2023-12-06 06:59 | disposition home or self-care (01) | LOC: PUVA 07:01 | PROVIDERS: PCP Nurse Practitioner Family; Visit Provider Dermatology | DX: L40.9 Psoriasis, unspecified (principal) | CPT/HCPCS: 96900 ==

== ENCOUNTER 2023-12-13 07:01 | Outpatient (CLI) | payer MEDICARE, SELFPAY | END 2023-12-13 07:02 | disposition home or self-care (01) | LOC: PUVA 07:01 | PROVIDERS: PCP Nurse Practitioner Family; Visit Provider Dermatology | DX: L40.9 Psoriasis, unspecified (principal) | CPT/HCPCS: 96900 ==

== ENCOUNTER 2023-12-20 07:01 | Outpatient (CLI) | payer MEDICARE, SELFPAY | END 2023-12-20 07:02 | disposition home or self-care (01) | LOC: PUVA 07:02 | PROVIDERS: PCP Nurse Practitioner Family; Visit Provider Dermatology | DX: L40.9 Psoriasis, unspecified (principal) | CPT/HCPCS: 96900 ==

== ENCOUNTER 2023-12-27 07:04 | Outpatient (CLI) | payer MEDICARE, SELFPAY | END 2023-12-27 07:05 | disposition home or self-care (01) | LOC: PUVA 07:04 | PROVIDERS: PCP Nurse Practitioner Family; Visit Provider Dermatology | DX: L40.9 Psoriasis, unspecified (principal) | CPT/HCPCS: 96900 ==

== ENCOUNTER 2024-01-03 07:11 | Outpatient (CLI) | payer MEDICARE, SELFPAY | END 2024-01-03 07:12 | disposition home or self-care (01) | LOC: PUVA 07:11 | PROVIDERS: PCP Nurse Practitioner Family; Visit Provider Dermatology | DX: L40.9 Psoriasis, unspecified (principal) | CPT/HCPCS: 96900 ==

== ENCOUNTER 2024-01-10 07:08 | Outpatient (CLI) | payer MEDICARE, SELFPAY | END 2024-01-10 07:09 | disposition home or self-care (01) | LOC: PUVA 07:08 | PROVIDERS: PCP Nurse Practitioner Family; Visit Provider Dermatology | DX: L40.9 Psoriasis, unspecified (principal) | CPT/HCPCS: 96900 ==

== ENCOUNTER 2024-01-17 07:25 | Outpatient (CLI) | payer MEDICARE, SELFPAY | END 2024-01-17 07:26 | disposition home or self-care (01) | LOC: PUVA 07:25 | PROVIDERS: PCP Nurse Practitioner Family; Visit Provider Dermatology | DX: L40.9 Psoriasis, unspecified (principal) | CPT/HCPCS: 96900 ==

== ENCOUNTER 2024-01-24 07:16 | Outpatient (CLI) | payer MEDICARE, SELFPAY | END 2024-01-24 07:17 | disposition home or self-care (01) | LOC: PUVA 07:16 | PROVIDERS: PCP Nurse Practitioner Family; Visit Provider Dermatology | DX: L40.9 Psoriasis, unspecified (principal) | CPT/HCPCS: 96900 ==

== ENCOUNTER 2024-02-07 07:03 | Outpatient (CLI) | payer MEDICARE, SELFPAY | END 2024-02-07 07:04 | disposition home or self-care (01) | LOC: PUVA 07:03 | PROVIDERS: PCP Nurse Practitioner Family; Visit Provider Dermatology | DX: L40.9 Psoriasis, unspecified (principal) | CPT/HCPCS: 96900 ==

== ENCOUNTER 2024-02-21 07:35 | Outpatient (CLI) | payer MEDICARE, SELFPAY | END 2024-02-21 07:36 | disposition home or self-care (01) | LOC: PUVA 07:36 | PROVIDERS: PCP Nurse Practitioner Family; Visit Provider Dermatology | DX: L80 Vitiligo (principal) | CPT/HCPCS: 96900 ==

== ENCOUNTER 2024-02-28 07:04 | Outpatient (CLI) | payer MEDICARE, SELFPAY | END 2024-02-28 07:05 | disposition home or self-care (01) | PROVIDERS: PCP Nurse Practitioner Family; Visit Provider Dermatology | DX: L80 Vitiligo (principal) | CPT/HCPCS: 96900 ==

== ENCOUNTER 2024-03-06 08:01 | Outpatient (CLI) | payer MEDICARE, SELFPAY | END 2024-03-06 08:02 | disposition home or self-care (01) | LOC: PUVA 08:01 | PROVIDERS: PCP Nurse Practitioner Family; Visit Provider Dermatology | DX: L40.0 Psoriasis vulgaris (principal) | CPT/HCPCS: 96900 ==

== ENCOUNTER 2024-03-13 07:29 | Outpatient (CLI) | payer MEDICARE, SELFPAY | END 2024-03-13 07:30 | disposition home or self-care (01) | LOC: PUVA 07:29 | PROVIDERS: PCP Nurse Practitioner Family; Visit Provider Dermatology | DX: L40.9 Psoriasis, unspecified (principal) | CPT/HCPCS: 96900 ==

== ENCOUNTER 2024-03-20 07:05 | Outpatient (CLI) | payer MEDICARE, SELFPAY | END 2024-03-20 07:06 | disposition home or self-care (01) | LOC: PUVA 07:06 | PROVIDERS: PCP Nurse Practitioner Family; Visit Provider Dermatology | DX: L40.9 Psoriasis, unspecified (principal) | CPT/HCPCS: 96900 ==

== ENCOUNTER 2024-04-03 09:23 | Outpatient (CLI) | payer MEDICARE, SELFPAY | END 2024-04-03 09:24 | disposition home or self-care (01) | LOC: PUVA 09:24 | PROVIDERS: PCP Nurse Practitioner Family; Visit Provider Dermatology | DX: L40.9 Psoriasis, unspecified (principal) | CPT/HCPCS: 96900 ==

== ENCOUNTER 2024-04-13 16:01 | Outpatient (CLI) | payer MEDICARE, SELFPAY | END 2024-04-13 16:02 | disposition home or self-care (01) | LOC: PUVA 04-16 16:02 | PROVIDERS: PCP Nurse Practitioner Family; Visit Provider Dermatology | DX: L40.9 Psoriasis, unspecified (principal) | CPT/HCPCS: 96900 ==

== ENCOUNTER 2024-04-20 07:36 | Outpatient (CLI) | payer MEDICARE, SELFPAY | END 2024-04-20 07:37 | disposition home or self-care (01) | LOC: PUVA 07:37 | PROVIDERS: PCP Nurse Practitioner Family; Visit Provider Dermatology | DX: L40.9 Psoriasis, unspecified (principal) | CPT/HCPCS: 96900 ==

== ENCOUNTER 2024-04-27 09:24 | Outpatient (CLI) | payer MEDICARE, SELFPAY | END 2024-04-27 09:25 | disposition home or self-care (01) | LOC: PUVA 09:25 | PROVIDERS: PCP Nurse Practitioner Family; Visit Provider Dermatology | DX: L40.9 Psoriasis, unspecified (principal) | CPT/HCPCS: 96900 ==

== ENCOUNTER 2024-05-04 09:10 | Outpatient (CLI) | payer MEDICARE, SELFPAY | END 2024-05-04 09:11 | disposition home or self-care (01) | LOC: PUVA 09:11 | PROVIDERS: PCP Nurse Practitioner Family; Visit Provider Dermatology | DX: L40.9 Psoriasis, unspecified (principal) | CPT/HCPCS: 96900 ==

== ENCOUNTER 2024-05-18 09:08 | Outpatient (CLI) | payer MEDICARE, SELFPAY | END 2024-05-18 09:09 | disposition home or self-care (01) | LOC: PUVA 09:08 | PROVIDERS: PCP Nurse Practitioner Family; Visit Provider Dermatology | DX: L40.9 Psoriasis, unspecified (principal) | CPT/HCPCS: 96900 ==

== ENCOUNTER 2024-05-25 09:23 | Outpatient (CLI) | payer MEDICARE, SELFPAY | END 2024-05-25 09:24 | disposition home or self-care (01) | LOC: PUVA 09:26 | PROVIDERS: PCP Nurse Practitioner Family; Visit Provider Dermatology | DX: L40.9 Psoriasis, unspecified (principal) | CPT/HCPCS: 96900 ==

== ENCOUNTER 2024-06-01 09:10 | Outpatient (CLI) | payer MEDICARE, SELFPAY | END 2024-06-01 09:11 | disposition home or self-care (01) | LOC: PUVA 09:12 | PROVIDERS: PCP Nurse Practitioner Family; Visit Provider Dermatology | DX: L40.9 Psoriasis, unspecified (principal) | CPT/HCPCS: 96900 ==

== ENCOUNTER 2024-06-29 09:18 | Outpatient (CLI) | payer MEDICARE, SELFPAY | END 2024-06-29 09:19 | disposition home or self-care (01) | LOC: PUVA 09:20 | PROVIDERS: PCP Nurse Practitioner Family; Visit Provider Dermatology | DX: L40.9 Psoriasis, unspecified (principal) | CPT/HCPCS: 96900 ==

== ENCOUNTER 2024-07-05 12:55 | Outpatient (CLI) | payer MEDICARE, SELFPAY | END 2024-07-05 12:56 | disposition home or self-care (01) | LOC: PUVA 12:56 | PROVIDERS: PCP Nurse Practitioner Family; Visit Provider Dermatology | DX: L40.9 Psoriasis, unspecified (principal) | CPT/HCPCS: 96900 ==

== ENCOUNTER 2024-07-13 09:24 | Outpatient (CLI) | payer MEDICARE, SELFPAY | END 2024-07-13 09:25 | disposition home or self-care (01) | LOC: PUVA 09:26 | PROVIDERS: PCP Nurse Practitioner Family; Visit Provider Dermatology | DX: L40.9 Psoriasis, unspecified (principal) | CPT/HCPCS: 96900 ==

== ENCOUNTER 2024-08-03 09:15 | Outpatient (CLI) | payer MEDICARE, SELFPAY | END 2024-08-03 09:16 | disposition home or self-care (01) | LOC: PUVA 09:16 | PROVIDERS: PCP Nurse Practitioner Family; Visit Provider Dermatology | DX: L40.9 Psoriasis, unspecified (principal) | CPT/HCPCS: 96900 ==

== ENCOUNTER 2024-08-10 07:22 | Outpatient (CLI) | payer MEDICARE, SELFPAY | END 2024-08-10 07:23 | disposition home or self-care (01) | LOC: PUVA 07:23 | PROVIDERS: PCP Nurse Practitioner Family; Visit Provider Dermatology | DX: L40.9 Psoriasis, unspecified (principal) | CPT/HCPCS: 96900 ==

== ENCOUNTER 2024-08-17 07:23 | Outpatient (CLI) | payer MEDICARE, SELFPAY | END 2024-08-17 07:24 | disposition home or self-care (01) | LOC: PUVA 07:23 | PROVIDERS: PCP Nurse Practitioner Family; Visit Provider Dermatology | DX: L40.0 Psoriasis vulgaris (principal) | CPT/HCPCS: 96900 ==

== ENCOUNTER 2024-09-07 07:12 | Outpatient (CLI) | payer MEDICARE, SELFPAY | END 2024-09-07 07:13 | disposition home or self-care (01) | LOC: PUVA 07:12 | PROVIDERS: PCP Nurse Practitioner Family; Visit Provider Dermatology | DX: L40.9 Psoriasis, unspecified (principal) | CPT/HCPCS: 96900 ==

== ENCOUNTER 2024-09-21 09:06 | Outpatient (CLI) | payer MEDICARE, SELFPAY | END 2024-09-21 09:07 | disposition home or self-care (01) | LOC: PUVA 09:07 | PROVIDERS: PCP Nurse Practitioner Family; Visit Provider Dermatology | DX: L40.9 Psoriasis, unspecified (principal) | CPT/HCPCS: 96900 ==

== ENCOUNTER 2024-10-12 07:08 | Outpatient (CLI) | payer MEDICARE, SELFPAY | END 2024-10-12 07:09 | disposition home or self-care (01) | LOC: PUVA 07:09 | PROVIDERS: PCP Nurse Practitioner Family; Visit Provider Dermatology | DX: L40.9 Psoriasis, unspecified (principal) | CPT/HCPCS: 96900 ==

== ENCOUNTER 2024-10-19 07:12 | Outpatient (CLI) | payer MEDICARE, SELFPAY | END 2024-10-19 07:13 | disposition home or self-care (01) | LOC: PUVA 07:13 | PROVIDERS: PCP Nurse Practitioner Family; Visit Provider Dermatology | DX: L40.9 Psoriasis, unspecified (principal) | CPT/HCPCS: 96900 ==

== ENCOUNTER 2024-10-26 07:19 | Outpatient (CLI) | payer MEDICARE, SELFPAY | END 2024-10-26 07:20 | disposition home or self-care (01) | LOC: PUVA 07:19 | PROVIDERS: PCP Nurse Practitioner Family; Visit Provider Dermatology | DX: L40.9 Psoriasis, unspecified (principal) | CPT/HCPCS: 96900 ==

== ENCOUNTER 2024-10-31 01:37 | Outpatient (CLI) | payer MEDICARE, SELFPAY ==
--- NOTE | 2024-10-31 06:30 | DI.MAMMO_ITS ---
Exam(s) MAMMO SCREENING EXAM: MAMMO SCREENING CLINICAL HISTORY: screening,z12.39. TECHNIQUE: Bilateral full field digital CC and MLO mammographic images were obtained with 3D tomosyn thesis and utilizing computer aided detection (CAD). COMPARISON: Prior mammograms were reviewed. FINDINGS: There has been no significant change in the appearance and distribution of the fibroglandular tissue. Small benign-appearing nodular densities in left breast remain unchanged from prior mammograms. There are no new spiculated masses nor new malignant appearing microcalcification groups. There is no significant architectural distortion nor skin thickening-retraction. IMPRESSION: No radiographic evidence of malignancy. Stable benign-appearing findings. BI-RADS Category 2 - Benign Findings Breast Density - Category B - Scattered areas of fibroglandular density Breast density Category C or D implies that the patient has dense breast tissue. Dense breast tissue can make it harder to find cancer on a mammogram. Dense breast tissue is also associated with an incr eased risk of breast cancer. This information about the result of the mammogram report was provided to the patient to raise their awareness. Use this report when you speak with the patient about their risks for breast cancer, which includes their family history. At that time, you may recommend additional screening tests (Ultrasoun d or MRI) as these tests may add significant information. A negative radiographic report should not delay biopsy if a dominant or clinically suspicious mass is present. Up to ten percent of cancers are not identified on mammography. A negative report may reinforce clinical impression. Adenosis and dense breasts may obscure an underlying neoplasm. False positive reports average 6 to 10%. Patient will receive a letter notifying them of these results.
== END 2024-10-31 01:57 ==
LOC: DI 01:37
PROVIDERS: PCP Nurse Practitioner Family; Visit Provider Nurse Practitioner Family
DX: Z12.31 Encounter for screening mammogram for malignant neoplasm of breast (principal); R92.323 Mammographic fibroglandular density, bilateral breasts; D24.2 Benign neoplasm of left breast
CPT/HCPCS: 77063; 77067

== ENCOUNTER 2024-11-02 07:03 | Outpatient (CLI) | payer MEDICARE, SELFPAY | END 2024-11-02 07:04 | disposition home or self-care (01) | LOC: PUVA 07:03 | PROVIDERS: PCP Nurse Practitioner Family; Visit Provider Dermatology | DX: L40.9 Psoriasis, unspecified (principal) | CPT/HCPCS: 96900 ==